=== PATIENT | male | born 1970 | race Caucasian/White ===

== ENCOUNTER 2021-01-29 06:28 | Outpatient (REF) | payer BC, SELFPAY ==
[2021-01-29 11:42] LABS: Alanine Aminotransferase 20 U/L (0-40); Albumin Level 4.5 g/dL (3.5-5.0); Alkaline Phosphatase 59 U/L (39-117); Anion Gap 15 (12-20); Aspartate Amino Transferase 18 U/L (5-37); Bilirubin Total 0.5 mg/dL (0.0-1.0); Blood Urea Nitrogen 18 mg/dL (9-16); Carbon Dioxide 25 mmol/L (22-29); Chloride 107 mmol/L (96-108); Cholesterol 176 mg/dL; Estimated Glomerular Filt Rate > 60; Glucose Fasting 92 mg/dL (60-99); HDL Cholesterol 44 mg/dL; LDL Cholesterol Calculated 107 mg/dl; Potassium 4.4 mmol/L (3.3-5.1); Sodium 143 mmol/L (135-145); Total Protein 7.1 g/dL (6.5-8.0); Triglycerides 127 mg/dL
[2021-01-29 11:50] LABS: Prostate Specific Antigen Scr 0.42 ng/mL (<0.05-4.0); TSH reflex Free T4 1.23 uIU/mL (0.32-4.0)
== END 2021-01-29 06:29 | disposition home or self-care (01) ==
LOC: HO.HMGCLDS 06:28
PROVIDERS: PCP Nurse Practitioner Family; Visit Provider Nurse Practitioner Family
DX: Z00.00 Encounter for general adult medical examination without abnormal findings (principal); Z12.5 Encounter for screening for malignant neoplasm of prostate
CPT/HCPCS: 36415; 80053; 80061; 84153; 84443

== ENCOUNTER → 2021-04-07 08:53 | Outpatient (BNVA) | payer BC, SELFPAY | PROVIDERS: Referring Provider Nurse Practitioner Family; Visit Provider Physician Assistant ==

== ENCOUNTER 2021-08-04 12:21 | Day surgery (SDC) | payer BC, SELFPAY ==
[2021-07-30 10:49] VITALS: BMI 26.4
--- NOTE | 2021-08-03 10:28 | P.CONAN_ITS ---
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 (Acute) Screening for colon cancer (Acute) Screening PSA (prostate specific antigen) (Acute) Physical exam (Acute) Past Medical History Medical History Dyslipidemia History of deep vein thrombosis HTN (hypertension) USP current use of anticoagulant therapy Family History Family History Mother Hypertension Breast cancer Father Hypertension Lung cancer Social History Social History Household Members: Significant Other Alcohol intake: current Alcohol intake frequency: 0-2 drinks per day Patient Tobacco Use Status: Tobacco use Unknown Advance Directives: No Advance Directives Information Provided: Yes Current occupational status: employed 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 Meds Allergies Allergy/AdvReac Type Severity Reaction Status Date / Time No Known Allergies Allergy Verified 08/04/21 13:25 Home Medications Medication Instructions Recorded Confirmed Last Taken Type rivaroxaban 20 mg tablet 20 mg PO DAILY 01/14/21 08/04/21 07/31/21 History Exam Exam Date and Time: August 03, 2021 1028 Height,Weight and Vital Signs: Height 5 ft 10 in Weight 83.461 kg Assessment and Plan Assessment Anesthesia Assessment: Chart Reviewed Documented by User: Maria G De La Garza MD 08/04/21 13:59 PMFSH Past Medical History Medical History Dyslipidemia History of deep vein thrombosis HTN (hypertension) 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 Family History Family History Mother Hypertension Breast cancer Father Hypertension Lung cancer Family history of problems with anesthesia: No Surgical History History of Problems with Anesthesia: No Social History Social History Household Members: Significant Other Alcohol intake: current Alcohol intake frequency: 0-2 drinks per day Patient Tobacco Use Status: Tobacco use Unknown Advance Directives: No Advance Directives Information Provided: Yes Current occupational status: employed 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 Meds Allergies Allergy/AdvReac Type Severity Reaction Status Date / Time No Known Allergies Allergy Verified 08/04/21 13:25 Home Medications Medication Instructions Recorded Confirmed Last Taken Type rivaroxaban 20 mg tablet 20 mg PO DAILY 01/14/21 08/04/21 07/31/21 History Exam Airway Mallampati Class: II TM Dist: >3cm Neck ROM: Full Assessment and Plan Assessment Anesthesia Assessment: Anesthesia Plan Discussed Final Anesthetic Review Family History of Problems with Anesthesia: No History of Problems with Anesthesia: No NPO: Yes ASA Class: II Final Preanesthetic Review: No Changes in Pt Med Stat, Meds/Allgs Chart Reviewed, Consent Obtained/Reviewed and Anes Risks/Benef Reviewed Patient Risk: Intermediate Procedure Risk: Low Assessment/Block/Sedation in SS: Assess/Block/Sedation-SS Anesthetic Plan Anesthetic Plan: MAC: Disposition: Standard PACU
--- NOTE | 2021-08-04 13:14 | MHC.SHP ---
Pre-Procedural Eval Section A Date of Service: 08/04/21 The patient is an INPATIENT: No The History & Physical has been completed within 30 days and I have reviewed it.: No Section B Chief Complaint: Screening Details of Present Illness: Colon cancer screening Relevant Family History (Specify if Yes): No Relevant Social History: None Present Medications: see Short Stay Collaborative assessment Medical History: Significant History (Dyslipidemia History of deep vein thrombosis HTN (hypertension) correction current use of anticoagulant therapy) History of Previous Operations: No relevant previous surgery Allergies: Allergies Allergy/AdvReac Type Severity Reaction Status Date / Time No Known Allergies Allergy Unverified 04/07/21 09:01 Review of Systems Sugical H&P ROS: Negative: Constitution, Cardiovascular, Respiratory and Gastrointestinal Exam Surgical H&P Exam: Normal: Heart, Normal: Lungs, Normal: Extremities and Normal: Abdomen Plan Diagnosis/Plan: Unchanged I have reviewed the history and physical and performed a pertinent physical examination on my patient. No changes have occurred unless specified.
--- NOTE | 2021-08-04 13:16 | P.OP_ITS ---
Operative Note Operative Note Date of Service: 08/04/21 Narrative: Pre-op diagnosis:?Colon cancer screening Post-op diagnosis:?other (Colon polyps, diverticulosis) Procedure:? COLONOSCOPY TILL CECUM WITH BIOPSY, SNARE POLYPECTOMY, SUBMUCOSAL INJECTION AND CONTROL OF BLEEDING WITH HEMOCLIP PLACEMENT Consent: Indications for the procedure and potential complications of bleeding, perforation, reaction to medications and missed diagnosis were discussed with the patient and informed consent was obtained. Instrument: Olympus PCF H 190 L variable stiffness pediatric colonoscope Monitoring: Vital signs and clinical assessment, intermittent blood pressure monitoring, continuous EKG monitoring, Pulse oximetry and Carbon Dioxide monitoring were done throughout the procedure. Colon withdrawl time was 40 minutes. Procedure: The patient was placed in the left lateral decubitis position and pre-procedure medications were administered. After a digital rectal examination of the ano-rectum, the video colonoscope was inserted into the rectum and advanced through the colon to the cecum. The colonoscope was slowly withdrawn in a retrograde panoramic fashion and the colon mucosa was carefully examined including a retroflexed view of the rectum. Findings and interventions are described below. Procedure Difficulty: Without difficulty Findings: Terminal Ileum: Not evaluated Cecum:? Normal Ascending Colon:? A 7-8 mm sessile polyp in distal AC removed with a cold snare and polyp was not retrieved.? A 4 cms x 2 cms flat polyp along a fold at 75 cms (20% of the colon circumference).? Polyp was raised with 6 cc of Orise solution and removed piece meal with a hot snare. ? Remaining polyp? was ablated with APC.? Polypectomy site was marked by brigette ink. Transverse Colon:? Normal Descending Colon:? Normal Sigmoid Colon:? Moderate diverticulosis Rectum:? A 12-15 mm sessile polyp inadvertently? removed with a cold with some bleeding at polypectomy site controlled with one resolution clip placement and cautery using the snare tip. Ano-rectum:? Normal Colon preparation:? Good? Impression and Post Procedure Diagnosis: Colonoscopy Findings: Three polyps removed Moderate diverticulosis seen in the sigmoid colon Plan: Await pathology results Patient has an appointment on 08/12/21 in the [facility] with BRADLY De La Cruz? . Repeat Colonoscopy interval based on path results - in 3-6 months if AC polyp at 75 cms is adenomatous to check polypectomy site and 10 years if polyps are hyperplastic. Above findings were reviewed with the patient and colon polyps and diverticulosis handouts were given in the discharge area. Pt was advised to resume Xarelto on 08/11/2021. Surgeon:?Heydi Silver MD Anesthesia:?MAC (Dr De La Garza) Was an Family Engagement Specialist used for this Procedure?:?Yes Family Engagement Specialist:?Ana Vargas Estimated blood loss (mL):?0 Pathology:?other (A. ascending colon polyp at 75 cm with Orise? B. rectal polyp) Condition:?stable Disposition:?PACU
[2021-08-04 13:28] VITALS: BP 160/88; PULSE 66; RESP 16; TEMP 36.6; O2SAT 100
[2021-08-04] MEDS: Lactated Ringers 1,000 ML 100 ML IVCONT (13:33)
[2021-08-04 15:25] VITALS: BP 106/64; PULSE 52; RESP 16; TEMP 36.5; O2SAT 99
[2021-08-04 15:41] VITALS: BP 126/83; PULSE 48; RESP 17; O2SAT 100
[2021-08-04 15:46] VITALS: BP 134/79; PULSE 50; RESP 17; O2SAT 100
== END 2021-08-04 16:10 | disposition home or self-care (01) ==
PROVIDERS: PCP Nurse Practitioner Family; Visit Provider Internal Medicine Gastroenterology
PROC: 0DJD8ZZ Inspection of Lower Intestinal Tract, Via Natural or Artificial Opening Endoscopic (ICD-10-PCS; CPT 45378; principal; 2021-08-04 13:30)
DX: Z12.11 Encounter for screening for malignant neoplasm of colon (principal); D12.2 Benign neoplasm of ascending colon; D12.8 Benign neoplasm of rectum; K57.30 Diverticulosis of large intestine without perforation or abscess without bleeding; I10 Essential (primary) hypertension; Z86.718 Personal history of other venous thrombosis and embolism; Z79.01 Long term (current) use of anticoagulants; Z79.899 Other long term (current) drug therapy
CPT/HCPCS: 45388; 45385; 45381; 88305; J3010

== ENCOUNTER 2021-08-05 15:26 | Emergency (ER) | payer BC, SELFPAY ==
--- NOTE | ~2021-08-05 | US_ITS ---
EXAMINATION: US VENOUS ULTRASOUND WITH DOPPLER LOWER EXTREMITY, LEFT CLINICAL INFORMATION: Pain COMPARISON: None TECHNIQUE: Ultrasound of the deep veins is performed from the hip to the calf with compression sonography and color and pulse Doppler assessment. Spectral analysis with color-flow imaging is performed. FINDINGS: There is normal venous compression and respiratory variation and augmented flow. The visualized common femoral vein, superficial femoral vein, profunda femoral vein, popliteal vein, and the trifurcation region shows no evidence of deep venous thrombosis. There is no significant popliteal fossa cyst. If the patient's symptoms persist, followup ultrasound in 5 days 7 days might be of value to exclude proximal propagation from a non-visualized calf vein. US/US venous duplex LE LT IMPRESSION: No DVT demonstrated in the left lower extremity.
[2021-08-05 15:42] VITALS: BP 158/85; PULSE 78; RESP 16; TEMP 36.9; O2SAT 100; BMI 25.8
--- NOTE | 2021-08-05 17:10 | ED_ITS ---
HPI - General Adult General Chief complaint: General Medical Stated complaint: dvt? Time Seen by Provider: 08/05/21 16:59 Source: patient Mode of arrival: ambulatory Limitations: no limitations History of Present Illness HPI narrative: Patient comes to the emergency room complaining of left lower extremity pain behind the knee and left thigh. Patient states that he has been off blood thinners for 6 days due to a colonoscopy that he needed. Patient usually takes Xarelto which she takes for previous DVTs. Patient states he has had multiple DVTs in the past, 1st 1 in 2010, and he was taken off blood thinners then he developed a DVT 3 weeks later. Taking of warfarin and developed more DVTs, since then he has been constantly on Xarelto. Patient denies chest pain, no shortness of breath, no calf pain Related Data Home Medications Medication Instructions Recorded Confirmed rivaroxaban 20 mg tablet 20 mg PO DAILY 01/14/21 08/04/21 Previous Rx's Medication Instructions Recorded atorvastatin 10 mg tablet 10 mg PO DAILY #90 tab 05/31/21 doxycycline hyclate 100 mg tablet 100 mg PO BID #20 tab 06/08/21 lisinopril 10 mg tablet 10 mg PO DAILY #30 tab 06/13/21 gemfibrozil 600 mg tablet 600 mg PO BID 30 Days #60 tab 07/06/21 Allergies Allergy/AdvReac Type Severity Reaction Status Date / Time No Known Allergies Allergy Verified 08/04/21 13:25 Review of Systems Review of Systems: Constitutional : No Weight loss, No Fever, No Chills, No Night Sweats, No Fatigue, No Malaise ENT/Mouth : No Hearing loss, No Ear Pain, No Nasal Congestion, No Sinus Pain, No Hoarseness, No sore throat, No Rhinorrhea, No Swallowing Difficulty Eyes: No Eye Pain, No Swelling, No Redness, No Foreign Body, No Discharge, No Vision Changes Cardiovascular : No Chest Pain, No SOB, No Dyspnea on Exertion, No Orthopnea, No Edema, No Palpitations Respiratory : No Cough, No Sputum, No Wheezing, No Smoke Exposure, No Dyspnea Gastrointestinal : No Nausea, No Vomiting, No Diarrhea, No Constipation, No a bdominal Pain, No Hematochezia, No Melena Genitourinary : no irregular bleeding, No Dysuria, No Urinary Frequency, No Hematuria, No Urinary Incontinence, No Urgency, No Flank Pain, No Urinary Flow Changes, No Hesitancy Musculoskeletal complaining of left lower extremity pain behind the knee and distal left thigh, denies calf pain, No Myalgias, No Joint Swelling Skin : No Skin Lesions, No rash Neuro : No Weakness, No Numbness, No Paresthesias, No Loss of Consciousness, No Dizziness, No Headache Psych : No Anxiety/Panic, No Depression, No SI/HI/AH/VH, No Social Issues, Heme/Lymph: No Bruising, No Bleeding,No Lymphadenopathy Endocrine : No Polyuria, No Polydipsia, No Temperature Intolerance [facility] Past Medical History Medical History Dyslipidemia History of deep vein thrombosis HTN (hypertension) [facility] current use of anticoagulant therapy Family History Family History Mother Hypertension Breast cancer Father Hypertension Lung cancer Social History Social History Household Members: Significant Other Alcohol intake: never Patient Tobacco Use Status: Tobacco use Unknown Use of substances other than those prescribed or required for medical reasons: No Advance Directives: No Advance Directives Information Provided: No Current occupational status: employed 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 Oriented X3. No acute distress. Eyes: Pupils equal, round and reactive to light. ENT: Pharynx normal. Neck: Normal inspection. Neck supple. No lymph nodes noted. No crepitus CVS: Normal heart rate and rhythm. Pulses normal. Normal S1 and S2 Respiratory: No respiratory distress. Breath sounds normal. No Wheezing. No rales Abdomen: Soft and nontender. No rigidity. No distention. good BS x4 Skin: Skin warm and dry. Normal skin color. Normal skin turgor. Extremities: No lower extremity edema. Mild discomfort to palpation behind the left knee and posterior/distal aspect of left thigh, no calf tenderness, No Lacerations. No Rash Neuro: Oriented X 3. No motor deficit. No sensory deficit. Moving all extermities. No slurred speech. Course Course Course Narrative: Patient's ultrasound is negative. Symptoms reviewed before discharge, pain is localized behind the left knee, no calf pain, no groin pain, no chest pain or shortness of breath, vital stable, blood pressure 128/74, heart rate 61, oxygen saturation 99% on room air. Patient states that he called his third rigger today and his building insulation supervisor, they both agreed that patient can restart his Xarelto on August 11. I instructed the patient to return to the emergency room if he has any ongoing/worsening symptoms, chest pain or shortness of breath, or any new symptoms. I also discussed with the patient that if his symptoms persist, he may need an ultrasound again in a week Medical Decision Making Lab Data Result diagrams: 08/05/21 17:39 08/05/21 17:39 Labs: Lab Results 08/05/21 08/05/21 08/05/21 Range/Units 17:39 17:39 17:39 WBC 11.2 H (4.8-10.8) X10*3/uL RBC 4.48 L (4.60-5.80) X10*6/uL Hgb 14.0 (14.0-18.0) g/dl Hct 39.9 L (42-52) % MCV 89.1 (80-98) fL MCH 31.3 (27.0-33.0) pg MCHC 35.1 (31.0-36.0) g/dl RDW 11.8 (11.0-16.0) % Plt Count 330 (160-400) X10*3/uL MPV 8.4 L (9.4-12.4) fL Immature Gran % (Auto) 0.2 (0.0-0.4) % Neut % (Auto) 74.1 H (45-73) % Lymph % (Auto) 15.7 L (20-40) % Mingo % (Auto) 8.6 (2-11) % Eos % (Auto) 1.2 (0-4) % Baso % (Auto) 0.2 (0-2) % Lymph # (Auto) 1.8 (1.2-4.9) X10*3/uL Mingo # (Auto) 1.0 (0.1-1.2) X10*3/uL Eos # (Auto) 0.1 (0.0-0.4) X10*3/uL Baso # (Auto) 0.0 (0.0-0.2) X10*3/uL Abs Immat Gran (auto) 0.02 (0.00-0.03) X10*3/uL Absolute Neuts (auto) 8.3 (2.0-8.3) X10*3/uL Absolute Nucleated RBC 0.000 (0.0-0.012) X10*3/uL Nucleated RBC % (auto) 0.0 (0.0-0.2) /100WBC D-Dimer 345 NG/ML Sodium 140 (135-145) mmol/L Potassium 4.4 (3.3-5.1) mmol/L Chloride 107 (96-108) mmol/L Carbon Dioxide 24 (22-29) mmol/L Anion Gap 13 (12-20) BUN 8 L D (9-16) mg/dL Creatinine 0.94 (0.5-1.4) mg/dL Estim Creat Clear Calc 95.9 Estimated GFR > 60 Random Glucose 92 (60-115) mg/dL Calcium 9.0 (8.4-10.2) mg/dL Imaging Data Venous US: Radiologist's impression: Ultrasound of the deep veins is performed from the hip to the calf with compression sonography and color and pulse Doppler assessment. Spectral analysis with color-flow imaging is performed. FINDINGS: There is normal venous compression and respiratory variation and augmented flow. The visualized common femoral vein, superficial femoral vein, profunda femoral vein, popliteal vein, and the trifurcation region shows no evidence of deep venous thrombosis. ? There is no significant popliteal fossa cyst. If the patient's symptoms persist, followup ultrasound in 5 days 7 days might be of value to exclude proximal propagation from a non-visualized calf vein. US/US venous duplex LE IMPRESSION: No DVT demonstrated in the left lower extremity. Discharge Plan Discharge Clinical Impression: Left leg pain Patient Disposition: Home, Self-Care Instructions: Leg Pain (ED) Additional Instructions: If you have any persistent symptoms, you may need a repeat ultrasound in a week. If you have any new symptoms such as chest pain, shortness of breath, worsening leg pain or calf pain, please return to emergency room. Please follow your building insulation supervisor and third rigger advise to restart Xarelto as indicated. Prescriptions: No Action atorvastatin 10 mg tablet 10 mg PO DAILY Qty: 90 RF: 0 lisinopril 10 mg tablet 10 mg PO DAILY Qty: 30 RF: 4 gemfibrozil 600 mg tablet 600 mg PO BID 30 Days Qty: 60 RF: 3 rivaroxaban 20 mg tablet 20 mg PO DAILY RF: 0 doxycycline hyclate 100 mg tablet 100 mg PO BID Qty: 20 RF: 0
[2021-08-05 17:45] LABS: MANUAL DIFF FLAG NO
[2021-08-05 17:51] LABS: Basophils Percent Auto 0.2 % (0-2); Eosinophils Absolute Auto 0.1 X10*3/uL (0.0-0.4); Eosinophils Percent Auto 1.2 % (0-4); Hematocrit 39.9 % (42-52); Imm Gran Abs Auto 0.02 X10*3/uL (0.00-0.03); Imm Gran Pct Auto 0.2 % (0.0-0.4); Lymphocytes Absolute Auto 1.8 X10*3/uL (1.2-4.9); Lymphocytes Percent Auto 15.7 % (20-40); Mean Corpuscular HGB Conc 35.1 g/dl (31.0-36.0); Mean Corpuscular Hemoglobin 31.3 pg (27.0-33.0); Mean Corpuscular Volume 89.1 fL (80-98); Mean Platelet Volume 8.4 fL (9.4-12.4); Monocytes Percent Auto 8.6 % (2-11); Neutrophils Absolute Auto 8.3 X10*3/uL (2.0-8.3); Neutrophils Percent Auto 74.1 % (45-73); Platelet Count 330 X10*3/uL (160-400); Red Blood Count 4.48 X10*6/uL (4.60-5.80); Red Cell Distribution Width 11.8 % (11.0-16.0); White Blood Count 11.2 X10*3/uL (4.8-10.8)
[2021-08-05 17:54] LABS: D Dimer 345 NG/ML
[2021-08-05 18:00] VITALS: BP 128/74; PULSE 61; RESP 18; TEMP 37.1; O2SAT 99
[2021-08-05 18:01] LABS: Anion Gap 13 (12-20); Blood Urea Nitrogen 8 mg/dL (9-16); Carbon Dioxide 24 mmol/L (22-29); Chloride 107 mmol/L (96-108); Creatinine Clr Calc Pharmacy 95.9; Estimated Glomerular Filt Rate > 60; Glucose Random 92 mg/dL (60-115); Potassium 4.4 mmol/L (3.3-5.1); Sodium 140 mmol/L (135-145)
== END 2021-08-05 18:39 | disposition home or self-care (01) ==
PROVIDERS: Emergency Provider Emergency Medicine; PCP Nurse Practitioner Family
DX: R60.0 Localized edema (principal); M79.605 Pain in left leg; Z79.4 Long term (current) use of insulin; Z79.899 Other long term (current) drug therapy
CPT/HCPCS: 36415; 80048; 85025; 85379; 93971; 99284

== ENCOUNTER 2021-08-08 13:41 | Emergency (ER) | payer BC, SELFPAY ==
--- NOTE | ~2021-08-08 | US_ITS ---
EXAMINATION: US VENOUS WITH DOPPLER LOWER EXTREMITY, RIGHT CLINICAL INFORMATION: Pain. Evaluate for a deep vein thrombosis. COMPARISON: Right lower extremity venous ultrasound dated 01/14/2016. TECHNIQUE: Ultrasound of the deep veins is performed from the hip to the calf with compression sonography and color and pulse Doppler assessment. Spectral analysis with color-flow imaging is performed. FINDINGS: Heterogeneous echogenicity with non-compressibility of the mid and distal posterior tibial vein, consistent with deep vein thrombosis. Partially occlusive clot seen within the proximal aspect of the peroneal vein. The common femoral vein, greater saphenous vein, deep femoral vein, superficial femoral vein, and popliteal vein are patent. No Ledbetter's cyst. In the region of the patient's pain at the anterior thigh there is heterogeneous echogenicity with thickening and slightly lobular contour within the quadriceps muscle. This area measures approximately 6.3 x 3.3 cm. Findings could represent a partial muscle tear and associated hematoma. If there is clinical concern, non-emergent MRI could help further evaluate. US/US venous duplex LE RT IMPRESSION: 1. Deep vein thrombosis within the distal posterior tibial vein. Non-occlusive thrombus within the proximal peroneal vein. 2. Area of lobulated heterogeneity within the right quadriceps muscle measuring 6.3 x 3.3 cm. Findings could represent partial muscle tearing and associated hematoma. If there is clinical concern, non-emergent MRI could help further evaluate. This critical result was discussed with Dr. Cotter at 7:51 PM on 08/08/2021 and it was ascertained that the content and urgency of the report was understood at the time of direct communication.
[2021-08-08 13:45] VITALS: BP 162/84; PULSE 84; RESP 16; TEMP 36.8; O2SAT 99; BMI 25.8
[2021-08-08 16:26] LABS: Hemoglobin 14.2 g/dl (14.0-18.0); Mean Corpuscular HGB Conc 34.6 g/dl (31.0-36.0); Mean Corpuscular Hemoglobin 31.1 pg (27.0-33.0); Mean Corpuscular Volume 89.7 fL (80-98); Mean Platelet Volume 8.5 fL (9.4-12.4); Platelet Count 362 X10*3/uL (160-400); Red Blood Count 4.57 X10*6/uL (4.60-5.80); Red Cell Distribution Width 11.9 % (11.0-16.0); White Blood Count 12.4 X10*3/uL (4.8-10.8)
[2021-08-08 16:43] LABS: Anion Gap 14 (12-20); Blood Urea Nitrogen 9 mg/dL (9-16); Calcium 9.3 mg/dL (8.4-10.2); Carbon Dioxide 24 mmol/L (22-29); Chloride 107 mmol/L (96-108); Creatinine Clr Calc Pharmacy 111.4; Estimated Glomerular Filt Rate > 60; Glucose Random 82 mg/dL (60-115); Potassium 4.6 mmol/L (3.3-5.1); Sodium 140 mmol/L (135-145)
--- NOTE | 2021-08-08 17:22 | ED_ITS ---
HPI - Extremity Problem General Chief complaint: Extremity Problem Stated complaint: leg pain post op Time Seen by Provider: 08/08/21 17:10 History of Present Illness HPI Narrative: Patient 50 years old with a history of DVT. Patient stopped his Xarelto approximately 1 week ago. Had his colonoscopy on Tuesday. Subsequently presented to the emergency department on with having increasing leg pain on the right side. At that time he had an ultrasound which was negative. Patient complained that the pain has worsened and there is increased swelling to the leg. Patient denies any chest pain shortness of breath any nausea vomiting. No focal weakness. No cough no congestion or upper respiratory symptoms. No diaphoresis. Patient is from home. Related Data Home Medications Medication Instructions Recorded Confirmed rivaroxaban 20 mg tablet 20 mg PO DAILY 01/14/21 08/04/21 Previous Rx's Medication Instructions Recorded atorvastatin 10 mg tablet 10 mg PO DAILY #90 tab 05/31/21 doxycycline hyclate 100 mg tablet 100 mg PO BID #20 tab 06/08/21 lisinopril 10 mg tablet 10 mg PO DAILY #30 tab 06/13/21 gemfibrozil 600 mg tablet 600 mg PO BID 30 Days #60 tab 07/06/21 Allergies Allergy/AdvReac Type Severity Reaction Status Date / Time No Known Allergies Allergy Verified 08/04/21 13:25 Review of Systems Review of Systems: No fever no chills no chest pain Positive leg swelling No shortness of breath No cough no congestion or upper respiratory symptoms. All systems reviewed otherwise negative Yes all other systems are reviewed and are negative PMFSH Past Medical History Attestation statement: The following information was validated with the patient. 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 Oriented X3. No acute distress. Eyes: Pupils equal, round and reactive to light. ENT: Pharynx normal. Neck: Normal inspection. Neck supple. No lymph nodes noted. No crepitus CVS: Normal heart rate and rhythm. Pulses normal. Normal S1 and S2 Respiratory: No respiratory distress. Breath sounds normal. No Wheezing. No rales Abdomen: Soft and nontender. No rigidity. No distention. good BS x4 Skin: Skin warm and dry. Normal skin color. Normal skin turgor. Extremities: Calves are about equal in size about 10 cm below the tibial tuberosity. Sensation in the lower extremity intact. Pulse 2 + at dorsalis pedis. This skin appeared same color. Range of motion at the knee ankle hip all intact bilaterally Neuro: Oriented X 3. No motor deficit. No sensory deficit. Moving all extermities. No slurred speech MDM - Extremity (Nontraumatic) MDM Narrative Medical decision making narrative: Patient has a history of DVT in the past. Baseline is on Xarelto. He was stopped for a colonoscopy. During the colonoscopy on Tuesday. Patient was found to have a polyp. It was excised. Subsequent to the colonoscopy patient was told to stop taking the Xarelto for 1 week. Noticing increasing swelling to the leg. Had an ultrasound and a done a few days ago. At the time no blood clot was noted. This time around patient received a 2nd ultrasound. The 2nd ultrasound was positive for having a peroneal and posterior tibial vein clot. Consistent with below the knee DVT. In addition patient has complicated by a likely partial muscle tear in his thigh. Possible hematoma noted there. Patient have not noticed any blood. Hemoglobin has been stable. No shortness of breath to suggest pulmonary emboli. Considered the pros and cons. Case discussed with GI. Dr. White is okay with restarting Xarelto. Patient started on the back on Xarelto due to the risk of DVT causing PE. Revelo the risk of bleeding from the colonoscopy to be less severe since patient is 5 days away from his colonoscopy. Revelo a patient had a hematoma and it got worse that could be managed. If patient has a DVT and subsequently developed a PE it could be more complicating. Will have patient get repeat ultrasound next Tuesday. Patient states understanding. Will not be doing any strenuous exercises. Currently in stable condition. Will discharge home. Patient aware of the pros and cons of Xarelto. Agreed to give this regiment a try. Lab Data Result diagrams: 08/08/21 16:07 08/08/21 16:07 Labs: Lab Results 08/08/21 08/08/21 Range/Units 16:07 16:07 WBC 12.4 H (4.8-10.8) X10*3/uL RBC 4.57 L (4.60-5.80) X10*6/uL Hgb 14.2 (14.0-18.0) g/dl Hct 41.0 L (42-52) % MCV 89.7 (80-98) fL MCH 31.1 (27.0-33.0) pg MCHC 34.6 (31.0-36.0) g/dl RDW 11.9 (11.0-16.0) % Plt Count 362 (160-400) X10*3/uL MPV 8.5 L (9.4-12.4) fL Absolute Nucleated RBC 0.000 (0.0-0.012) X10*3/uL Nucleated RBC % (auto) 0.0 (0.0-0.2) /100WBC Sodium 140 (135-145) mmol/L Potassium 4.6 (3.3-5.1) mmol/L Chloride 107 (96-108) mmol/L Carbon Dioxide 24 (22-29) mmol/L Anion Gap 14 (12-20) BUN 9 (9-16) mg/dL Creatinine 0.81 (0.5-1.4) mg/dL Estim Creat Clear Calc 111.4 Estimated GFR > 60 Random Glucose 82 (60-115) mg/dL Calcium 9.3 (8.4-10.2) mg/dL Discharge Plan Discharge Clinical Impression: Deep vein thrombosis of lower extremity, Hematoma Patient Disposition: Home, Self-Care Instructions: Deep Vein Thrombosis (ED) Additional Instructions: Please restart the Xarelto tonight. Please take it once a day. Repeat ultrasound next Tuesday. Prescriptions: No Action atorvastatin 10 mg tablet 10 mg PO DAILY Qty: 90 RF: 0 lisinopril 10 mg tablet 10 mg PO DAILY Qty: 30 RF: 4 gemfibrozil 600 mg tablet 600 mg PO BID 30 Days Qty: 60 RF: 3 rivaroxaban 20 mg tablet 20 mg PO DAILY RF: 0 doxycycline hyclate 100 mg tablet 100 mg PO BID Qty: 20 RF: 0 Referrals: Jaskaran Orellana, SENIOR BUSINESS OBJECTS DEVELOPER[employer] [Primary Care Provider] - 2 days (Risk of hematoma getting worse exists. Please place ice on it. Please do not perform any strenuous exercises.) Stand Alone Forms: Work/School Release
== END 2021-08-08 20:36 | disposition home or self-care (01) ==
PROVIDERS: Emergency Provider Emergency Medicine Emergency Medical Services; PCP Nurse Practitioner Family
DX: I82.4Z1 Acute embolism and thrombosis of unspecified deep veins of right distal lower extremity (principal); R60.0 Localized edema; M79.604 Pain in right leg; Z79.899 Other long term (current) drug therapy; Z79.01 Long term (current) use of anticoagulants
CPT/HCPCS: 36415; 80048; 85027; 93971; 99284

== ENCOUNTER 2021-08-14 11:18 | Outpatient (REF) | payer BC, SELFPAY ==
--- NOTE | ~2021-08-14 | US_ITS ---
EXAMINATION: US VENOUS ULTRASOUND WITH DOPPLER LOWER EXTREMITY, BILATERAL CLINICAL INFORMATION: History of positive right leg DVT 08/08/2021 COMPARISON: Ultrasound right lower extremity venous study 08/08/2021 and 08/05/2021 TECHNIQUE: Ultrasound of the deep veins is performed from the hip to the calf with compression sonography and color and pulse Doppler assessment. Spectral analysis with color-flow imaging is performed. FINDINGS: RIGHT: There is normal venous compression and respiratory variation and augmented flow. The visualized common femoral vein, superficial femoral vein, profunda femoral vein are widely patent. There is a chronic partially canalized clot in the right popliteal vein and mid to distal posterior tibial veins. There is no significant popliteal fossa cyst. LEFT: There is a new echogenic clot visualized in the left mid superficial femoral vein in mid thigh to lower thigh. Also visualized is an echogenic clot in the posterior tibial vein. The left common femoral, the popliteal, and the tibioperoneal veins are patent. US/US venous duplex LE BI IMPRESSION: New clot visualized in the left mid superficial femoral vein and posterior tibial vein mid to distal calf, new since the last left ultrasound venous study 08/05/2021. There are chronic changes of clot in the mid to distal posterior tibial vein and distal popliteal vein.
== END 2021-08-14 11:19 | disposition home or self-care (01) ==
LOC: HO.HMGCX 11:18
PROVIDERS: PCP Nurse Practitioner Family; Visit Provider Nurse Practitioner Family
DX: Z86.718 Personal history of other venous thrombosis and embolism (principal)
CPT/HCPCS: 93970

== ENCOUNTER → 2021-09-02 15:02 | Outpatient (BNV) | payer BC, SELFPAY | PROVIDERS: Visit Provider Internal Medicine | DX: I82.401 Acute embolism and thrombosis of unspecified deep veins of right lower extremity (principal) | CPT/HCPCS: 99203; 99213; 99214 ==

== ENCOUNTER → 2021-12-16 14:14 | Outpatient (BNVA) | payer BC, SELFPAY | PROVIDERS: PCP Nurse Practitioner Family; Referring Provider Nurse Practitioner Family; Visit Provider Physician Assistant ==

== ENCOUNTER 2022-03-17 06:01 | Outpatient (REF) | payer BC, SELFPAY ==
[2022-03-17 11:52] LABS: Appearance Urine CLOUDY; Color Urine YELLOW; Glucose Urine UA NEG (NEG); Leukocyte Esterase Urine NEG (NEG); Nitrite Urine NEG (NEG); PH 5.5 (5.0-8.0); Specific Gravity - Urine >= 1.030 (1.005-1.025); UACC Culture Trigger NO; Urine Blood TRACE (NEG); Urine Ketones NEG (NEG); Urine Protein NEG (NEG-TRACE)
[2022-03-17 12:06] LABS: Amorphous Sediment Urine 3+ /LPF; Bacteria Urine TRACE /LPF; Calcium Oxalate Crystals Urine TRACE /LPF; RBC Urine 0-2 /HPF (0); WBC Urine 0 /HPF (0-4)
[2022-03-17 12:19] LABS: Prostate Specific Antigen Scr 0.36 ng/mL (<0.05-4.0); TSH reflex Free T4 1.86 uIU/mL (0.32-4.0)
[2022-03-17 12:24] LABS: Alanine Aminotransferase 20 U/L (0-40); Albumin Level 4.4 g/dL (3.5-5.0); Alkaline Phosphatase 63 U/L (39-117); Anion Gap 10 (12-20); Aspartate Amino Transferase 16 U/L (5-37); Bilirubin Total 0.6 mg/dL (0.0-1.0); Blood Urea Nitrogen 16 mg/dL (9-16); Calcium 9.3 mg/dL (8.4-10.2); Carbon Dioxide 27 mmol/L (22-29); Chloride 109 mmol/L (96-108); Cholesterol 190 mg/dL; Estimated Glomerular Filt Rate > 60; Glucose Fasting 109 mg/dL (60-99); HDL Cholesterol 45 mg/dL; LDL Cholesterol Calculated 113 mg/dl; Potassium 4.1 mmol/L (3.3-5.1); Sodium 142 mmol/L (135-145); Triglycerides 161 mg/dL
== END 2022-03-17 06:02 | disposition home or self-care (01) ==
LOC: HO.HMGCLDS 06:01
PROVIDERS: PCP Nurse Practitioner Family; Visit Provider Nurse Practitioner Family
DX: Z00.00 Encounter for general adult medical examination without abnormal findings (principal); Z12.5 Encounter for screening for malignant neoplasm of prostate
CPT/HCPCS: 36415; 80053; 80061; 81001; 81003; 84153; 84443

== ENCOUNTER 2022-04-12 06:09 | Outpatient (REF) | payer BC, SELFPAY ==
[2022-04-12 11:07] LABS: Urine Cytology See Pathology rpt
[2022-04-12 11:21] LABS: Appearance Urine CLEAR; Color Urine YELLOW; Glucose Urine UA NEG (NEG); Leukocyte Esterase Urine NEG (NEG); Nitrite Urine NEG (NEG); PH 5.5 (5.0-8.0); Specific Gravity - Urine 1.025 (1.005-1.025); Urine Blood NEG (NEG); Urine Ketones NEG (NEG); Urine Protein NEG (NEG-TRACE)
== END 2022-04-12 06:10 | disposition home or self-care (01) ==
LOC: HO.HMGCLDS 06:09
PROVIDERS: PCP Nurse Practitioner Family; Visit Provider Nurse Practitioner Family
DX: R31.29 Other microscopic hematuria (principal)
CPT/HCPCS: 81003; 87086; 88112

== ENCOUNTER 2022-04-16 10:25 | Day surgery (SDC) | payer BC, SELFPAY ==
[2022-04-12 14:23] VITALS: BMI 26.5
--- NOTE | 2022-04-15 13:09 | P.CONAN_ITS ---
Documented by User: Lizzy Chaudhari NP 04/15/22 13:18 HPI - Anesthesia Eval Consult details Narrative: 51yo M for Colonoscopy Xarelto for DVT, lovenox bridge per heme s/p colo 07/2021 with MAC (repeat bc adenomatous polyp) PMFSH Active Problems Active Problems: All Active Problems (Updated 04/12/22 @ 14:22 by Michelle Hendrickson RN) Physical exam (Acute) Screening PSA (prostate specific antigen) (Acute) Screening for colon cancer (Acute) Insect bite (Acute) Tubular adenoma (Acute) Diverticulosis large intestine w/o perforation or abscess w/o bleeding (Acute) Physical exam (Acute) Microscopic hematuria (Acute) Dyslipidemia (Acute) HTN (hypertension) (Acute) History of deep vein thrombosis (Chronic) assisted current use of anticoagulant therapy (Acute) Past Medical History Medical History (Updated 04/12/22 @ 14:22 by Michelle Hendrickson RN) COVID-19 vaccine series completed Dyslipidemia History of deep vein thrombosis HTN (hypertension) assisted current use of anticoagulant therapy Family History Family History (Updated 04/07/22 @ 14:41 by Marlene Alcaraz CMA) Mother Breast cancer Hypertension Father Lung cancer Hypertension Maternal Grandfather Skin cancer Paternal Grandfather Colon cancer Sister Skin cancer Family history of problems with anesthesia: No Surgical History Surgical History (Updated 04/12/22 @ 14:17 by Michelle Hendrickson RN) History of surgery Hx of colonoscopy History of Problems with Anesthesia: No Social History Social History (Updated 04/07/22 @ 14:41 by Marlene Alcaraz CMA) Household Members: Spouse Housing: House Are you a primary urgent care physician assistant to a significant other at home: No Do you presently have visiting nurse or other home services: No Alcohol intake: current Alcohol intake frequency: 3 or more drinks per day Alcohol type: beer Patient Tobacco Use Status: Former Tobacco user Quit Date: 1997 Tobacco use type: Cigarette Cigarette Packs Per Day: 1.5 Years Smoked: over 20 years ago e-Cigarette/Vaping Use: Never Used Second Hand Smoke Exposure: No Are you DNR?: No Advance Directives: No Advance Directives Information Provided: Yes service: Yes Current occupational status: employed 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 Current occupational exposures/hazards: No Meds Allergies Allergy/AdvReac Type Severity Reaction Status Date / Time No Known Allergies Allergy Verified 04/07/22 14:42 Home Medications Medication Instructions Recorded Confirmed Last Taken Type rivaroxaban 20 mg tablet (Xarelto) 20 mg PO DAILY 01/14/21 04/12/22 07/31/21 History Exam Exam Date and Time: April 15, 2022 1309 Height,Weight and Vital Signs: Height 5 ft 10 in Weight 83.915 kg Pertinent Lab Results Pertinent Lab Results: Laboratory Tests 04/07/22 04/07/22 14:44 14:44 WBC 8.8 Hgb 14.2 Hct 41.0 L Plt Count 365 Sodium 137 Potassium 5.1 D Chloride 105 Carbon Dioxide 24 BUN 18 H Creatinine 0.96 Assessment and Plan Assessment Anesthesia Assessment: Chart Reviewed Final Anesthetic Review Family History of Problems with Anesthesia: No History of Problems with Anesthesia: No Documented by User: Deb Paez MD 04/16/22 10:51 FORMERLY [facility], [facility] Past Medical History Medical History (Updated 04/12/22 @ 14:22 by Michelle Hendrickson RN) COVID-19 vaccine series completed Dyslipidemia History of deep vein thrombosis HTN (hypertension) assisted current use of anticoagulant therapy Family History Family History (Updated 04/07/22 @ 14:41 by Marlene Alcaraz CMA) Mother Breast cancer Hypertension Father Lung cancer Hypertension Maternal Grandfather Skin cancer Paternal Grandfather Colon cancer Sister Skin cancer Surgical History Surgical History (Updated 04/12/22 @ 14:17 by Michelle Hendrickson RN) History of surgery Hx of colonoscopy Social History Social History (Updated 04/07/22 @ 14:41 by Marlene Alcaraz CMA) Household Members: Spouse Housing: House Are you a primary urgent care physician assistant to a significant other at home: No Do you presently have visiting nurse or other home services: No Alcohol intake: current Alcohol intake frequency: 3 or more drinks per day Alcohol type: beer Patient Tobacco Use Status: Former Tobacco user Quit Date: 1997 Tobacco use type: Cigarette Cigarette Packs Per Day: 1.5 Years Smoked: over 20 years ago e-Cigarette/Vaping Use: Never Used Second Hand Smoke Exposure: No Are you DNR?: No Advance Directives: No Advance Directives Information Provided: Yes service: Yes Current occupational status: employed 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 Current occupational exposures/hazards: No Meds Allergies Allergy/AdvReac Type Severity Reaction Status Date / Time No Known Allergies Allergy Verified 04/07/22 14:42 Home Medications Medication Instructions Recorded Confirmed Last Taken Type rivaroxaban 20 mg tablet (Xarelto) 20 mg PO DAILY 01/14/21 04/12/22 07/31/21 History Exam Airway Mallampati Class: II TM Dist: >3cm Neck ROM: Full Heart: rrr Lungs: cta Assessment and Plan Assessment Anesthesia Assessment: Anesthesia Plan Discussed and Chart Reviewed Final Anesthetic Review NPO: Yes ASA Class: II Final Preanesthetic Review: No Changes in Pt Med Stat, Meds/Allgs Chart Reviewed, Consent Obtained/Reviewed and Anes Risks/Benef Reviewed Patient Risk: Intermediate Procedure Risk: Intermediate Anesthetic Plan Anesthetic Plan: MAC: Disposition: Standard PACU
[2022-04-16 10:30] VITALS: BP 136/85; PULSE 62; RESP 16; TEMP 369.8; TEMP 697.6; O2SAT 99; BMI 26.5
[2022-04-16] MEDS: Lactated Ringers 1,000 ML 100 ML IVCONT (11:02)
--- NOTE | 2022-04-16 11:32 | MHC.SHP ---
Pre-Procedural Eval Section A Date of Service: 04/16/22 The patient is an INPATIENT: No The History & Physical has been completed within 30 days and I have reviewed it.: No Section B Chief Complaint: Colon cancer screening, Benign neoplasm, Details of Present Illness: Colon cancer screening, history of colon polyps Relevant Family History (Specify if Yes): No Relevant Social History: Tobacco Use (Former smoker) Present Medications: see Short Stay Collaborative assessment Medical History: Significant History (Dyslipidemia History of deep vein thrombosis HTN (hypertension) senior care current use of anticoagulant therapy) History of Previous Operations: Relevant previous surgery/procedure and date(s) (History of surgery Hx of colonoscopy) Allergies: Allergies Allergy/AdvReac Type Severity Reaction Status Date / Time No Known Allergies Allergy Verified 04/07/22 14:42 Review of Systems Sugical H&P ROS: Negative: Constitution, Cardiovascular, Respiratory and Gastrointestinal Exam Surgical H&P Exam: Normal: Heart, Normal: Lungs, Normal: Extremities and Normal: Abdomen Plan Diagnosis/Plan: Unchanged I have reviewed the history and physical and performed a pertinent physical examination on my patient. No changes have occurred unless specified.
--- NOTE | 2022-04-16 11:33 | P.BOP_ITS ---
Brief Operative Note Date of Service: 04/16/22 Pre-op diagnosis: Colon cancer screening, follow-up of colon polyps Post-op diagnosis: other (Colon polyps, diverticulosis, hemorrhoids) Procedure: COLONOSCOPY TILL CECUM WITH BIOPSIES AND SNARE POLYPECTOMY Consent: Indications for the procedure and potential complications of bleeding, perforation, reaction to medications and missed diagnosis were discussed with the patient and informed consent was obtained. Instrument: Olympus PCF H 190 L variable stiffness pediatric colonoscope Monitoring: Vital signs and clinical assessment, intermittent blood pressure monitoring, continuous EKG monitoring, Pulse oximetry and Carbon Dioxide monitoring were done throughout the procedure. Colon withdrawl time was 14 minutes. Procedure: The patient was placed in the left lateral decubitis position and pre-procedure medications were administered. After a digital rectal examination of the ano-rectum, the video colonoscope was inserted into the rectum and advanced through the colon to the cecum. The colonoscope was slowly withdrawn in a retrograde panoramic fashion and the colon mucosa was carefully examined including a retroflexed view of the rectum. Findings and interventions are described below. Procedure Difficulty: Without difficulty Findings: Terminal Ileum: Not evaluated Cecum: Normal Ascending Colon: Polypectomy site at 75 cms (at the hepatic flexure) was examined and no residual polyp was seen. A 12-15 mm sessile polyp noted near the polypectomy site removed with a hot snare. Transverse Colon: Normal Descending Colon: Normal Sigmoid Colon: A 4-5mm diminutive appearing polyp removed with a cold biopsy. Moderate diverticulosis Rectum: Normal Ano-rectum: Small internal hemorrhoids Colon preparation: Good Impression and Post Procedure Diagnosis: Colonoscopy Findings: One medium sized and one small polyps removed Moderate diverticulosis seen in the sigmoid colon Small hemorrhoids on retroflexed exam. Plan: Await pathology results Patient has an appointment on 04/29/22 in the GI Clinic with BRADLY De La Cruz. Repeat Colonoscopy interval based on path results - in 3 years if polyps are adenomatous and due to a hx of multiple colon polyps. Above findings were reviewed with the patient and colon polyps and diverticulosis handouts were given in the discharge area Pt was advised to resume Lovenox Injections tonight, tomorrow (am and pm)and 04/18/22 am. He is to resume Xarelto evening of 04/17/22 Surgeon: Heydi Silver MD Anesthesia: MAC (Dr Law) Was an Varitype Operator used for this Procedure?: Yes Varitype Operator: Angelina Mcdonald Estimated blood loss (mL): 0 Pathology: other (a. Polyp @ hepatic flexsure b. Sigmoid polyp) Condition: stable Disposition: PACU
[2022-04-16 12:34] VITALS: BP 99/62; PULSE 54; RESP 16; TEMP 36.1; O2SAT 98
[2022-04-16 12:49] VITALS: BP 126/81; PULSE 59; RESP 16; TEMP 36.7; O2SAT 98
--- NOTE | 2022-04-16 16:39 | P.OP_ITS ---
Operative Note Operative Note Date of Service: 04/16/22 Narrative: Pre-op diagnosis: Colon cancer screening, follow-up of colon polyps Post-op diagnosis:?other (Colon polyps, diverticulosis, hemorrhoids) Procedure: COLONOSCOPY TILL CECUM WITH BIOPSIES AND SNARE POLYPECTOMY Consent: Indications for the procedure and potential complications of bleeding, perforation, reaction to medications and missed diagnosis were discussed with the patient and informed consent was obtained. Instrument: Olympus PCF H 190 L variable stiffness pediatric colonoscope Monitoring: Vital signs and clinical assessment, intermittent blood pressure monitoring, continuous EKG monitoring, Pulse oximetry and Carbon Dioxide monitoring were done throughout the procedure. Colon withdrawl time was 14 minutes. Procedure: The patient was placed in the left lateral decubitis position and pre-procedure medications were administered. After a digital rectal examination of the ano-rectum, the video colonoscope was inserted into the rectum and advanced through the colon to the cecum. The colonoscope was slowly withdrawn in a retrograde panoramic fashion and the colon mucosa was carefully examined including a retroflexed view of the rectum. Findings and interventions are described below. Procedure Difficulty: Without difficulty Findings: Terminal Ileum: Not evaluated Cecum:? Normal Ascending Colon:? Polypectomy site at 75 cms (at the hepatic flexure) was examined and no residual polyp was seen.? A 12-15 mm sessile polyp noted near the polypectomy site removed with a hot snare. Transverse Colon:? Normal Descending Colon:? Normal Sigmoid Colon:? A 4-5mm diminutive appearing polyp removed with a cold biopsy.? Moderate diverticulosis Rectum:? Normal Ano-rectum:? Small internal hemorrhoids Colon preparation:? Good? Impression and Post Procedure Diagnosis: Colonoscopy Findings: One medium sized and one small polyps removed Moderate diverticulosis seen in the sigmoid colon Small hemorrhoids on retroflexed exam. Plan: Await pathology results Patient has an appointment on 04/29/22 in the GI Clinic with BRADLY De La Cruz. Repeat Colonoscopy interval based on path results - in 3 years if polyps are adenomatous and due to a hx of multiple colon polyps. Above findings were reviewed with the patient and colon polyps and diverticulosis handouts were given in the discharge area Pt was advised to resume Lovenox Injections tonight, tomorrow (am and pm)and 04/18/22 am. He is to resume Xarelto evening of 04/17/22 Surgeon: Heydi Silver MD Anesthesia:?MAC (Dr Law) Was an Balance Engineer used for this Procedure?:?Yes Balance Engineer:?Angelina Mcdonald Estimated blood loss (mL):?0 Pathology:?other (a. Polyp @ hepatic flexsure? b. Sigmoid polyp) Condition:?stable Disposition:?PACU
== END 2022-04-16 13:20 | disposition home or self-care (01) ==
PROVIDERS: PCP Nurse Practitioner Family; Visit Provider Internal Medicine Gastroenterology
PROC: 0DJD8ZZ Inspection of Lower Intestinal Tract, Via Natural or Artificial Opening Endoscopic (ICD-10-PCS; CPT 45378; principal; 2022-04-16 11:50)
DX: Z12.11 Encounter for screening for malignant neoplasm of colon (principal); Z86.010 Personal history of colon polyps; K63.5 Polyp of colon; K57.30 Diverticulosis of large intestine without perforation or abscess without bleeding; K64.8 Other hemorrhoids; I10 Essential (primary) hypertension; E78.5 Hyperlipidemia, unspecified; Z79.899 Other long term (current) drug therapy; Z86.718 Personal history of other venous thrombosis and embolism; Z79.01 Long term (current) use of anticoagulants; Z87.891 Personal history of nicotine dependence
CPT/HCPCS: 45385; 45380; 88305

== ENCOUNTER 2022-06-01 14:34 | Outpatient (REF) | payer BC, SELFPAY ==
[2022-06-01 17:02] LABS: Urine Cytology See Pathology rpt
== END 2022-06-01 14:35 | disposition home or self-care (01) ==
LOC: HO.LAB 14:34
DX: R31.9 Hematuria, unspecified (principal)
CPT/HCPCS: 88112

== ENCOUNTER 2023-04-21 06:06 | Outpatient (REF) | payer BC, SELFPAY ==
[2023-04-21 08:59] LABS: Appearance Urine Clear; Color Urine Yellow; Glucose Urine UA Negative (Negative); Leukocyte Esterase Urine Negative (Negative); Nitrite Urine Negative (Negative); Urine Blood Negative (Negative); Urine Ketones Negative (Negative); Urine Protein Negative (Neg-Trace)
[2023-04-21 09:09] LABS: MANUAL DIFF FLAG NO
[2023-04-21 09:21] LABS: Basophils Percent Auto 0.5 % (0-2); Eosinophils Absolute Auto 0.4 X10*3/uL (0.0-0.4); Eosinophils Percent Auto 4.8 % (0-4); Hematocrit 42.1 % (42.0-52.0); Hemoglobin 14.3 g/dl (14.0-18.0); Imm Gran Abs Auto 0.02 X10*3/uL (0.00-0.03); Imm Gran Pct Auto 0.3 % (0.0-0.4); Lymphocytes Absolute Auto 2.3 X10*3/uL (1.2-4.9); Lymphocytes Percent Auto 31.6 % (20-40); Mean Corpuscular Hemoglobin 30.9 pg (27.0-33.0); Mean Corpuscular Volume 90.9 fL (80.0-98.0); Mean Platelet Volume 8.7 fL (9.4-12.4); Monocytes Absolute Auto 0.6 X10*3/uL (0.1-1.2); Monocytes Percent Auto 8.3 % (2-11); Neutrophils Percent Auto 54.5 % (45-73); Platelet Count 403 X10*3/uL (160-400); Red Blood Count 4.63 X10*6/uL (4.60-5.80); Red Cell Distribution Width 12.1 % (11.0-16.0); White Blood Count 7.3 X10*3/uL (4.8-10.8)
[2023-04-21 09:50] LABS: Alanine Aminotransferase 16 U/L (0-40); Albumin Level 4.4 g/dL (3.5-5.0); Alkaline Phosphatase 68 U/L (39-117); Anion Gap 10 (12-20); Aspartate Amino Transferase 17 U/L (5-37); Bilirubin Total 0.5 mg/dL (0.0-1.0); Blood Urea Nitrogen 16 mg/dL (9-16); Calcium 9.1 mg/dL (8.4-10.2); Carbon Dioxide 28 mmol/L (22-29); Chloride 107 mmol/L (96-108); Cholesterol 165 mg/dL; Estimated Glomerular Filt Rate > 60; Glucose Fasting 104 mg/dL (60-99); HDL Cholesterol 43 mg/dL; LDL Cholesterol Calculated 94 mg/dl; Prostate Specific Antigen Scr 0.39 ng/mL (<0.05-4.0); Sodium 141 mmol/L (135-145); Total Protein 7.2 g/dL (6.5-8.0); Triglycerides 140 mg/dL
== END 2023-04-21 06:07 | disposition home or self-care (01) ==
LOC: HO.HMGCLDS 06:06
PROVIDERS: PCP Nurse Practitioner Family; Visit Provider Nurse Practitioner Family
DX: Z00.00 Encounter for general adult medical examination without abnormal findings (principal); Z20.2 Contact with and (suspected) exposure to infections with a predominantly sexual mode of transmission; Z12.5 Encounter for screening for malignant neoplasm of prostate; E78.5 Hyperlipidemia, unspecified; Z13.220 Encounter for screening for lipoid disorders
CPT/HCPCS: 36415; 80053; 80061; 81003; 84153; 84443; 85025

== ENCOUNTER 2024-04-10 06:05 | Outpatient (REF) | payer BC, SELFPAY ==
[2024-04-10 10:19] LABS: MANUAL DIFF FLAG NO
[2024-04-10 10:32] LABS: Appearance Urine Clear; Color Urine Yellow; Glucose Urine UA Negative (Negative); Leukocyte Esterase Urine Negative (Negative); Nitrite Urine Negative (Negative); PH 5.5 (5.0-9.0); Urine Blood Negative (Negative); Urine Ketones Negative (Negative); Urine Protein Negative (Neg-Trace)
[2024-04-10 10:47] LABS: Basophils Absolute Auto 0.1 X10*3/uL (0.0-0.2); Basophils Percent Auto 0.7 % (0-2); Eosinophils Absolute Auto 0.4 X10*3/uL (0.0-0.4); Eosinophils Percent Auto 6.3 % (0-4); Hematocrit 42.2 % (42.0-52.0); Hemoglobin 14.2 g/dl (14.0-18.0); Imm Gran Abs Auto 0.02 X10*3/uL (0.00-0.03); Imm Gran Pct Auto 0.3 % (0.0-0.4); Lymphocytes Absolute Auto 2.2 X10*3/uL (1.2-4.9); Lymphocytes Percent Auto 31.7 % (20-40); Mean Corpuscular HGB Conc 33.6 g/dl (31.0-36.0); Mean Corpuscular Hemoglobin 30.9 pg (27.0-33.0); Mean Corpuscular Volume 91.7 fL (80.0-98.0); Mean Platelet Volume 8.6 fL (9.4-12.4); Monocytes Absolute Auto 0.5 X10*3/uL (0.1-1.2); Monocytes Percent Auto 7.7 % (2-11); Neutrophils Absolute Auto 3.7 x10*3/uL (2.0-8.3); Neutrophils Percent Auto 53.3 % (45-73); Platelet Count 386 X10*3/uL (160-400); Red Cell Distribution Width 12.1 % (11.0-16.0)
[2024-04-10 11:20] LABS: Prostate Specific Antigen Scr 0.43 ng/mL (<0.05-4.0)
[2024-04-10 11:30] LABS: Alanine Aminotransferase 17 U/L (0-40); Albumin Level 4.5 g/dL (3.5-5.0); Alkaline Phosphatase 65 U/L (39-117); Anion Gap 12 (12-20); Aspartate Amino Transferase 19 U/L (5-37); Bilirubin Total 0.6 mg/dL (0.0-1.0); Blood Urea Nitrogen 15 mg/dL (9-16); Calcium 9.5 mg/dL (8.4-10.2); Carbon Dioxide 25 mmol/L (22-29); Chloride 105 mmol/L (96-108); Cholesterol 162 mg/dL (<200); Estimated Glomerular Filt Rate > 60; Glucose Fasting 104 mg/dL (60-99); HDL Cholesterol 43 mg/dL (>40); LDL Cholesterol Calculated 92 mg/dL (<100); Potassium 4.1 mmol/L (3.3-5.1); Sodium 138 mmol/L (135-145); TSH reflex Free T4 2.09 uIU/mL (0.32-4.0); Total Protein 7.1 g/dL (6.5-8.0); Triglycerides 137 mg/dL (<150)
== END 2024-04-10 06:06 | disposition home or self-care (01) ==
LOC: HO.HMGCLDS 06:05
PROVIDERS: PCP Nurse Practitioner Family; Visit Provider Nurse Practitioner Family
DX: Z00.00 Encounter for general adult medical examination without abnormal findings (principal); Z12.5 Encounter for screening for malignant neoplasm of prostate; Z13.6 Encounter for screening for cardiovascular disorders
CPT/HCPCS: 36415; 80053; 80061; 81003; 84153; 84443; 85025

== ENCOUNTER 2024-07-19 12:52 | Outpatient (AMB) | payer BC, SELFPAY ==
--- NOTE | 2024-07-19 12:56 | A.OFFPC_ITS ---
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 Accompanied by: Self / Same As Patient Allergies No Known Allergies Allergy (Verified 07/19/24 12:57) Medication List - Last Reconciled 07/19/24 by YAIMA Mcknight atorvastatin 10 mg PO DAILY gemfibrozil 600 mg PO BID 90 days lisinopril 10 mg PO DAILY rivaroxaban (Xarelto) 20 mg PO DAILY Tobacco use date assessed: 07/19/24 Dental Screening Dental Screen Date: 07/19/24 Did you have a dental visit in the last 12 months?: Yes Did you have a dental problem in the last 6 months where you did not have access to dental care?: No Was dental information given to patient?: Patient has dentist HPI PE HPI Details Pt is here for a PE. Will order labs. Colon screen is up to date. PSA is up to date. Denies dribbling with urination, weak stream, and frequent nocturia. Pt's blood pressure is elevated today. He is currently taking lisinopril 10mg, will increase this to 20mg. Will have pt monitor his blood pressure at home and drop off values in the near future. Denies chest pain, shortness of breath, headache, dizziness, and blurred vision. 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 Surgical History History of surgery Hx of colonoscopy Family History Mother Breast cancer Hypertension Father Lung cancer Hypertension Substance use disorder Maternal Grandfather Skin cancer Paternal Grandfather Colon cancer Substance use disorder Sister Skin cancer Maternal Grandfather Substance use disorder Social History Household Members: Spouse Housing: House Are you a primary account executive healthcare to a significant other at home: No Do you presently have visiting nurse or other home services: No Alcohol intake: current Alcohol intake frequency: 3 or more drinks per day Alcohol type: beer Patient Tobacco Use Status: Former Tobacco user Tobacco use type: Cigarette Cigarette Packs Per Day: 1.5 Years Smoked: over 20 years ago e-Cigarette/Vaping Use: Never Used Second Hand Smoke Exposure: No service: Yes Current occupational status: employed 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 1. Little interest or pleasure in doing things: not at all 2. Feeling down, depressed, or hopeless: not at all 3. Trouble falling or staying asleep, or sleeping too much: not at all 4. Feeling tired or having little energy: several days 5. Poor appetite or overeating: not at all 6. Feeling bad about yourself - or that you are a failure or have let yourself or your family down: not at all 7. Trouble concentrating on things, such as reading the newspaper or watching television: not at all 8. Moving or speaking so slowly that other people could have noticed. Or the opposite - being so fidgety or restless that you have been moving around a lot more than usual: not at all 9. Thoughts that you would be better off or of hurting yourself in some way: not at all Total score: 1 Depression Screening Interpretation: Negative Depression Screening Done: Yes 65588 - PHQ-9 Billing: Yes Source: Developed by Drs. Darwin White, Jessenia Paul, Jose J Ruggiero and colleagues, with an educational wayne from [employer]. Thrive Questionnaire Date Thrive assessed: 07/19/24 I am a: Patient What is your living situation today?: I have a steady place to live Within the past 12 months, did the food you bought not last and you didn't have the money to get more?: Never true Within the past 12 months, did you worry whether your food would run out before you got money to buy more?: Never true Do you have trouble paying for medicines?: No Do you have trouble getting transportation to medical appointments?: No Do you have trouble paying your heating and electricity bill?: No Do you have trouble taking care of your child, family member or friend?: No Do you have trouble with day-to-day activities such as bathing, preparing meals, shopping, managing finances, etc.?: No Are you currently unemployed and looking for a job?: No Are you interested in more education?: No Please select the resources that you would like help with: None Currently or been in a relationship where the following occur: No concerns reported THRIVE Score: 0 AUDIT C Alcohol Use Questionnaire (AUDIT-C) 1. How often do you have a drink containing alcohol?: 4 or more times a week 2. How many drinks containing alcohol do you have on a typical day when you are drinking?: 1 or 2 3. How often do you have six or more drinks on one occasion?: Less than monthly Total Score: 5 Score Reviewed/Action Taken: Yes SHARI-7 AMB Questionnaire SHARI-7 Date SHARI - 7 assessed: 07/19/24 Feeling nervous, anxious, or on edge: 0 = Not at all Not being able to stop or control worryin = Not at all Worrying too much about different things: 0 = Not at all Trouble relaxin = Not at all Being so restless that it is hard to sit still: 0 = Not at all Becoming easily annoyed or irritable: 0 = Not at all Feeling afraid as if something awful might happen: 0 = Not at all Total SHARI-7 score (0-4 normal; 5-9 mild; 10-14 moderate; 15-21 severe): 0 Source: Developed by Drs. Darwin White, Jessenia Paul, Jose J Ruggiero and colleagues, with an educational wayne from [employer]. SHARI-7 Assessment Billing SHARI-7 Assessment Tool: SHARI-7 Assessment 30509 Review of Systems Const Denies chills and Denies fever(s) Eyes Denies blurry vision ENT Denies vertigo, Denies dizziness and Denies sore throat Card Denies chest pain at rest, Denies chest pain with activity, Denies diaphoresis, Denies dyspnea and Denies dyspnea on exertion Resp Denies cough, Denies dyspnea, Denies dyspnea on exertion and Denies wheezing GI Denies abdominal pain, Denies melena, Denies hematochezia, Denies constipation, Denies diarrhea and Denies loose stools Denies hematuria Musc Denies numbness and Denies tingling Skin/Breast Denies lesions Neuro Denies vertigo, Denies dizziness, Denies numbness and Denies tingling Psych Denies anxiety, Denies depression, Denies homicidal ideation, Denies suicidal ideation and Denies other (substance abuse) Aller/Immun Denies wheezing Physical exam (Primary Care) Vital Signs: Last Vital Signs Pulse 67 07/19/24 12:57 BP 168/94 H 07/19/24 12:57 Pulse Ox 98 07/19/24 12:57 BMI result Body Mass Index 27.3 Tobacco/Smoking Status: Tobacco use Status Tobacco use date assessed 07/19/24 07/19/24 12:58 Patient Tobacco Use Status Former Tobacco user 07/19/24 12:58 Tobacco use type Cigarette 07/19/24 12:58 e-Cigarette/Vaping Use Never Used 07/19/24 12:58 PHQ-9: PHQ-9 Score PHQ-9: Total score 1 07/19/24 13:19 Depression Screening Interpretation: Negative Thrive Assessment: Date of Thrive Assessment Date Thrive assessed 07/19/24 07/19/24 12:58 Currently or been in a relationship where the following occur: No concerns reported Const General: cooperative Nutritional Appearance: well nourished Orientation/consciousness: patient oriented x3 HENMT Head: Yes normal to inspection, Yes normocephalic and Yes atraumatic Ears: TM's normal bilaterally Eyes General: appearance normal, both eyes and all related structures Alignment and Position: alignment normal and position normal Neck Neck: Yes normal visual inspection, Yes no lymphadenopathy and Yes supple Resp Effort & Inspection: normal respiratory effort Auscultation: clear to auscultation bilaterally Cardio Rate: regular rate Rhythm: regular rhythm Heart sounds: S1 normal heart sound present, S2 normal heart sound present and no murmurs GI Palpation (GI): Soft to palpation and nontender Auscultation: normal bowel sounds Male General Exam: Yes normal external exam Penis: normal penis Scrotum: scrotum normal, testes descended bilaterally and no inguinal hernias Testes: no testicular mass Skin Rashes: no rashes Neuro General: patient oriented x3, moves all extremities, no focal motor deficits and deep tendon reflexes 2+ bilaterally Romberg Test: Negative Psych Appearance: grossly normal Mental Status: mental status grossly normal Speech and movement: Normal speech and movement present Affect: normal affect Attitude: cooperative Thought process: Normal thought process present Thought content: Normal thought content present Insight: Good insight present (Psych) Judgement: Good judgement present (Psych) Assessment and Plan Assessment & Plan (1) Physical exam: Code(s): Z00.00 - Encounter for general adult medical examination without abnormal findings Plan: Labs ordered (2) Screening PSA (prostate specific antigen): Code(s): Z12.5 - Encounter for screening for malignant neoplasm of prostate Plan: PSA ordered (3) HTN (hypertension): Code(s): I10 - Essential (primary) hypertension Plan: Increasing lisinopril from 10mg to 20mg, pt will monitor BP at home and drop off values in the near future Plan The patient agreed to the use of a medical terminologist for this encounter. Scribed for SHEN Alvarez-FLORA by Tatiana Maldonado medical terminologist, on 07/19/2024 at 13:20 EST. Orders: Orders Complete Blood Count Auto Diff Today Z00.00 - Encounter for general adult medical examination without abnormal findings Lipid Panel Today Z00.00 - Encounter for general adult medical examination without abnormal findings Comprehensive [place]. Panel Fast Today Z00.00 - Encounter for general adult medical examination without abnormal findings TSH reflex Free T4 Today Z00.00 - Encounter for general adult medical examination without abnormal findings UA CC w/rflx Micro + Cult Today Z00.00 - Encounter for general adult medical examination without abnormal findings Medications: Changed From lisinopril 10 mg PO DAILY 90 tabs 1RF To lisinopril 20 mg PO DAILY 90 tabs 1RF Coding Level of Care Code Est Pt Prev Care 40-64y(17517) Diagnoses Physical exam Z00.00 Screening PSA (prostate specific antigen) Z12.5 HTN (hypertension) I10 Additional Codes SHARI-7 Assessment Billing - SHARI-7 Assessment Tool: SHARI-7 Assessment 05045 ([id number])
[2024-07-19 12:57] VITALS: BP 168/94; PULSE 67; O2SAT 98; BMI 27.3
[2024-07-19 13:39] VITALS: BP 158/96
== END 2024-07-19 13:51 | disposition home or self-care (01) ==
PROVIDERS: PCP Nurse Practitioner Family; Visit Provider Nurse Practitioner Family
DX: Z00.00 Encounter for general adult medical examination without abnormal findings (principal); Z12.5 Encounter for screening for malignant neoplasm of prostate; I10 Essential (primary) hypertension
CPT/HCPCS: 99396

== ENCOUNTER 2024-08-23 06:01 | Outpatient (REF) | payer BC, SELFPAY ==
[2024-08-23 10:13] LABS: MANUAL DIFF FLAG NO
[2024-08-23 10:19] LABS: Basophils Percent Auto 0.6 % (0-2); Eosinophils Absolute Auto 0.3 X10*3/uL (0.0-0.4); Eosinophils Percent Auto 4.1 % (0-4); Hematocrit 41.8 % (42.0-52.0); Hemoglobin 14.1 g/dl (14.0-18.0); Imm Gran Abs Auto 0.02 X10*3/uL (0.00-0.03); Imm Gran Pct Auto 0.3 % (0.0-0.4); Lymphocytes Absolute Auto 2.2 X10*3/uL (1.2-4.9); Lymphocytes Percent Auto 31.1 % (20-40); Mean Corpuscular HGB Conc 33.7 g/dl (31.0-36.0); Mean Corpuscular Hemoglobin 30.9 pg (27.0-33.0); Mean Corpuscular Volume 91.7 fL (80.0-98.0); Mean Platelet Volume 8.8 fL (9.4-12.4); Monocytes Absolute Auto 0.6 X10*3/uL (0.1-1.2); Monocytes Percent Auto 8.4 % (2-11); Neutrophils Percent Auto 55.5 % (45-73); Platelet Count 415 X10*3/uL (160-400); Red Blood Count 4.56 X10*6/uL (4.60-5.80); Red Cell Distribution Width 12.2 % (11.0-16.0); White Blood Count 7.1 X10*3/uL (4.8-10.8)
[2024-08-23 10:24] LABS: Appearance Urine Clear; Color Urine Yellow; Glucose Urine UA Negative (Negative); Leukocyte Esterase Urine Negative (Negative); Nitrite Urine Negative (Negative); PH 5.5 (5.0-9.0); Urine Blood Negative (Negative); Urine Ketones Negative (Negative); Urine Protein Negative (Neg-Trace)
[2024-08-23 11:08] LABS: Alanine Aminotransferase 16 U/L (0-40); Albumin Level 4.4 g/dL (3.5-5.0); Alkaline Phosphatase 72 U/L (39-117); Anion Gap 11 (12-20); Aspartate Amino Transferase 16 U/L (5-37); Bilirubin Total 0.5 mg/dL (0.0-1.0); Blood Urea Nitrogen 15 mg/dL (9-16); Calcium 9.3 mg/dL (8.4-10.2); Carbon Dioxide 27 mmol/L (22-29); Chloride 107 mmol/L (96-108); Cholesterol 156 mg/dL (<200); Estimated Glomerular Filt Rate > 60; Glucose Fasting 96 mg/dL (60-99); HDL Cholesterol 41 mg/dL (>40); LDL Cholesterol Calculated 85 mg/dL (<100); Potassium 4.1 mmol/L (3.3-5.1); Sodium 141 mmol/L (135-145); Total Protein 6.9 g/dL (6.5-8.0); Triglycerides 151 mg/dL (<150)
[2024-08-23 11:29] LABS: TSH reflex Free T4 1.68 uIU/mL (0.32-4.0)
== END 2024-08-23 06:02 | disposition home or self-care (01) ==
LOC: HO.HMGCLDS 06:01
PROVIDERS: PCP Nurse Practitioner Family; Visit Provider Nurse Practitioner Family
DX: Z00.00 Encounter for general adult medical examination without abnormal findings (principal)
CPT/HCPCS: 36415; 80053; 80061; 81003; 84443; 85025

== ENCOUNTER 2024-10-27 09:15 | Outpatient (REF) | payer BC, SELFPAY ==
[2024-10-27 11:10] LABS: MANUAL DIFF FLAG NO
[2024-10-27 11:20] LABS: Basophils Absolute Auto 0.1 X10*3/uL (0.0-0.2); Basophils Percent Auto 0.7 % (0-2); Eosinophils Absolute Auto 0.3 X10*3/uL (0.0-0.4); Eosinophils Percent Auto 3.4 % (0-4); Hematocrit 41.1 % (42.0-52.0); Hemoglobin 14.2 g/dl (14.0-18.0); Imm Gran Abs Auto 0.02 X10*3/uL (0.00-0.03); Imm Gran Pct Auto 0.2 % (0.0-0.4); Lymphocytes Absolute Auto 2.7 X10*3/uL (1.2-4.9); Lymphocytes Percent Auto 32.9 % (20-40); Mean Corpuscular HGB Conc 34.5 g/dl (31.0-36.0); Mean Corpuscular Hemoglobin 31.2 pg (27.0-33.0); Mean Corpuscular Volume 90.3 fL (80.0-98.0); Mean Platelet Volume 8.7 fL (9.4-12.4); Monocytes Absolute Auto 0.6 X10*3/uL (0.1-1.2); Monocytes Percent Auto 7.5 % (2-11); Neutrophils Absolute Auto 4.5 x10*3/uL (2.0-8.3); Neutrophils Percent Auto 55.3 % (45-73); Platelet Count 413 X10*3/uL (160-400); Red Blood Count 4.55 X10*6/uL (4.60-5.80); Red Cell Distribution Width 12.1 % (11.0-16.0); White Blood Count 8.1 X10*3/uL (4.8-10.8)
== END 2024-10-27 09:16 | disposition home or self-care (01) ==
LOC: HO.HMGCLDS 09:15
PROVIDERS: PCP Nurse Practitioner Family; Visit Provider Nurse Practitioner Family
DX: I10 Essential (primary) hypertension (principal)
CPT/HCPCS: 36415; 85025

== ENCOUNTER 2024-11-16 12:11 | Outpatient (AMB) | payer BC, SELFPAY ==
[2024-11-16 12:39] VITALS: BP 120/80; PULSE 77; TEMP 36.9; O2SAT 98
--- NOTE | 2024-11-16 12:39 | MHC.OFFWIV ---
Intake Vital Signs 11/16/24 12:39 Weight 189 lb BP 120/80 Blood Pressure Location Rt brachial Position Sitting Pulse 77 Pulse Source Pulse Oximeter Temp 98.5 F Temp Source Oral Pulse Oximetry (%) 98 Oxygen Delivery Method Room Air Intake Visit Reasons: EP ?Sinus infection Intake Note: Patient here for sinus congestion and pressure that started tuesday. Patient Tobacco Use Status: Former Tobacco user Allergies No Known Allergies Allergy (Verified 11/16/24 12:43) Do you need a note to return to daycare/school/sports/work: No HPI EP ?Sinus infection HPI Details This is a 54 year old male patient who presents to the [place] [facility] today for report of sinus/facial pressure for the last 5 days. He states he has yellow sputum in the mornings, and otherwise has facial pressure throughout the day. Has been taking an otc decongestant without relief. He denies any fever, chills, body aches. Denies any GI symptoms. States that he gets a sinus infection similar to this about once per year. 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 Surgical History History of surgery Hx of colonoscopy Family History Mother Breast cancer Hypertension Father Lung cancer Hypertension Substance use disorder Maternal Grandfather Skin cancer Paternal Grandfather Colon cancer Substance use disorder Sister Skin cancer Maternal Grandfather Substance use disorder Social History Household Members: Spouse Housing: House Are you a primary laboratory animal care veterinarian to a significant other at home: No Do you presently have visiting nurse or other home services: No Alcohol intake: current Alcohol intake frequency: 3 or more drinks per day Alcohol type: beer Patient Tobacco Use Status: Former Tobacco user Tobacco use type: Cigarette Cigarette Packs Per Day: 1.5 Years Smoked: over 20 years ago e-Cigarette/Vaping Use: Never Used Second Hand Smoke Exposure: No service: Yes Current occupational status: employed 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 Current occupational exposures/hazards: No Cognitive needs: No Hearing needs: No Vision needs: No Review of Systems Const All systems reviewed & are unremarkable except as noted in HPI and below Physical Exam Vital Signs: Last Vital Signs Temp 98.5 F 11/16/24 12:39 Pulse 77 11/16/24 12:39 BP 120/80 11/16/24 12:39 Pulse Ox 98 11/16/24 12:39 Oxygen Delivery Method Room Air 11/16/24 12:39 Const General: cooperative, healthy appearing, comfortable and no acute distress Limitations: no limitations HEENT Head: Yes normal to inspection Ears: hearing grossly normal bilaterally General nose exam: Normal external nose present and Normal nares present Face and sinus: Yes sinus tenderness (frontal/maxillary) Mouth: Normal oral and palatal mucosa present Throat: Yes posterior oropharynx abnormal (mild erythema) Neck Neck: Yes no lymphadenopathy Resp Effort & Inspection: normal respiratory effort Auscultation: clear to auscultation bilaterally Cardio Rate: regular rate Rhythm: regular rhythm Skin General skin exam: no rashes or lesions noted Extrem General: Yes capillary refill normal and Yes no clubbing, cyanosis or edema Psych Appearance: grossly normal Mental Status: mental status grossly normal Speech and movement: Normal speech and movement present Assessment & Plan Assessment & Plan (1) Maxillary sinusitis, acute: Code(s): J01.00 - Acute maxillary sinusitis, unspecified Qualifiers: Recurrence: non-recurrent Qualified Code(s): J01.00 - Acute maxillary sinusitis, unspecified Plan: Has done well previously for similar illness with azithromycin. Will send this today. We reviewed indications, use, possible side effects of medication. Advised additional conservative measures with decongestants, saline nasal spray, Tylenol as needed. If he does not improve with plan discussed today, he can return to the clinic for further evaluation. Patient verbalizes understanding and agrees to plan. Medications: New azithromycin For 250 mg dose pack: take 500 mg today (day 1), then 250 mg for 4 days (days 2-5) PO 6 tabs 0RF J01.00 - Acute maxillary sinusitis, unspecified Coding Level of Care Code Est Pt Level 4 (04205) Diagnoses Acute non-recurrent maxillary sinusitis J01.00 Recurrence: non-recurrent
== END 2024-11-16 13:19 | disposition home or self-care (01) ==
PROVIDERS: PCP Nurse Practitioner Family; Visit Provider Nurse Practitioner Family
DX: J01.00 Acute maxillary sinusitis, unspecified (principal)

== ENCOUNTER 2024-11-24 08:35 | Outpatient (REF) | payer BC, SELFPAY ==
[2024-11-24 12:08] LABS: MANUAL DIFF FLAG NO
[2024-11-24 12:15] LABS: Basophils Percent Auto 0.5 % (0-2); Eosinophils Absolute Auto 0.2 X10*3/uL (0.0-0.4); Hemoglobin 13.9 g/dl (14.0-18.0); Imm Gran Abs Auto 0.02 X10*3/uL (0.00-0.03); Imm Gran Pct Auto 0.3 % (0.0-0.4); Lymphocytes Absolute Auto 2.8 X10*3/uL (1.2-4.9); Mean Corpuscular HGB Conc 34.8 g/dl (31.0-36.0); Mean Corpuscular Hemoglobin 31.2 pg (27.0-33.0); Mean Corpuscular Volume 89.9 fL (80.0-98.0); Mean Platelet Volume 8.4 fL (9.4-12.4); Monocytes Absolute Auto 0.4 X10*3/uL (0.1-1.2); Monocytes Percent Auto 4.7 % (2-11); Neutrophils Absolute Auto 4.3 x10*3/uL (2.0-8.3); Neutrophils Percent Auto 55.5 % (45-73); Platelet Count 455 X10*3/uL (160-400); Red Blood Count 4.45 X10*6/uL (4.60-5.80); White Blood Count 7.7 X10*3/uL (4.8-10.8)
[2024-11-24 12:38] LABS: Alanine Aminotransferase 16 U/L (0-40); Albumin Level 4.3 g/dL (3.5-5.0); Alkaline Phosphatase 79 U/L (39-117); Anion Gap 9 (12-20); Aspartate Amino Transferase 22 U/L (5-37); Bilirubin Total 0.4 mg/dL (0.0-1.0); Blood Urea Nitrogen 15 mg/dL (9-16); Calcium 8.9 mg/dL (8.4-10.2); Carbon Dioxide 26 mmol/L (22-29); Chloride 110 mmol/L (96-108); Estimated Glomerular Filt Rate > 60; Glucose Random 101 mg/dL (60-115); Sodium 141 mmol/L (135-145); Total Protein 7.2 g/dL (6.5-8.0)
== END 2024-11-24 08:36 | disposition home or self-care (01) ==
LOC: HO.HMGCLDS 08:35
PROVIDERS: PCP Nurse Practitioner Family; Visit Provider Nurse Practitioner Family
DX: R79.89 Other specified abnormal findings of blood chemistry (principal); I10 Essential (primary) hypertension
CPT/HCPCS: 36415; 80053; 85025

== ENCOUNTER 2025-01-16 11:23 | Outpatient (AMB) | payer BC, SELFPAY ==
[2025-01-16 11:44] VITALS: BP 124/84; PULSE 68; TEMP 36.7; O2SAT 97; BMI 27.0
--- NOTE | 2025-01-16 11:44 | MHC.PC.OV ---
Vital Signs 01/16/25 11:44 Height 5 ft 10 in Weight 188 lb BMI 27.0 BP 124/84 Blood Pressure Location Lt brachial Position Sitting Pulse 68 Pulse Source Pulse Oximeter Temp 98.0 F Temp Source Oral Pulse Oximetry (%) 97 Intake Visit Reasons: 6M F/U Intake Note: pt is here for 6 mon f.up [employer] Service Technician Required: No Accompanied by: Self / Same As Patient Allergies No Known Allergies Allergy (Verified 01/16/25 12:23) Medication List - Last Reconciled 01/16/25 by SHEN Mcknight- atorvastatin 10 mg PO DAILY gemfibrozil 600 mg PO BID 90 days lisinopril 30 mg PO DAILY 90 days rivaroxaban (Xarelto) 20 mg PO DAILY Tobacco use date assessed: 01/16/25 Dental Screening Dental Screen Date: 01/16/25 Did you have a dental visit in the last 12 months?: Yes Did you have a dental problem in the last 6 months where you did not have access to dental care?: No Was dental information given to patient?: Patient has dentist HPI 6M F/U HPI Details Chief Complaint The patient is presenting for a follow-up for hypertension and dyslipidemia. History of Present Illness The patient is a 54-year-old male presenting for a follow-up evaluation of hypertension and dyslipidemia. His hypertension and dyslipidemia have been managed with antihypertensive therapy and lipid-lowering interventions, respectively. Currently on a statin and gemfibrozil. He has implemented significant lifestyle changes, including regular gym attendance resulting in weight loss and an improved diet. He reports feeling well and denies experiencing any chest pain, shortness of breath, blurred vision, or headaches. The patient is also under long-term anticoagulant therapy for a previous DVT and plans a future follow-up consultation with his security analyst. He reports stability in his DVT condition without any worsening symptoms. The patient's vitals and lab tests from previous visits did not indicate any alarming changes, and current management strategies appear effective. Social History - Exercising regularly by attending the gym. - Improved dietary habits, although specific dietary details were not discussed. - Weight management through regular physical activity leading to weight loss. Health Maintenance - Scheduled lab re-evaluation in 2-3 months for cholesterol, liver function, and kidney function. - Follow-up with security analyst for management of DVT. Review of Systems - Cardiovascular: Denies chest pain. - Respiratory: Denies shortness of breath. - Eyes: Denies blurred vision. - Neurological: Denies headaches. Physical Exam General: Cooperative, healthy appearing, comfortable, no acute distress and well developed Orientation: Patient oriented x3 Limitations: No limitations Head: Normal to inspection Ears: Hearing grossly normal bilaterally Nose: Normal external nose present Face and sinus: Normal facial exam Eyes: Appearance normal, both eyes and all related structures Neck: Normal visual inspection and Yes full ROM Respiratory: Normal respiratory effort and able to speak in complete sentences. Clear to auscultation bilaterally Cardiovascular: Regular rate and rhythm. Normal S1 and S2 GI: Normal to inspection. Soft to palpation and nontender Skin: No rashes or lesions noted Neuro: Patient oriented x3 Extremities: Normal to inspection Results Plan The patient will continue his current treatment regimen for essential hypertension and dyslipidemia, including antihypertensive and lipid-lowering medications, coupled with lifestyle modifications such as exercise and healthy eating. A laboratory re-evaluation is set for cholesterol, liver, and kidney function in two to three months to monitor the patient?s status. For the DVT, ongoing anticoagulation therapy should be sustained with structured follow-up by a security analyst. A comprehensive physical examination is scheduled for July to further assess the patient's overall health condition. Discussion Notes During our discussion, I emphasized the importance of ongoing adherence to prescribed hypertension and dyslipidemia management plans, which include medication and lifestyle changes. We discussed the risks, benefits, and alternatives of current treatments, underscoring the positive outcomes achieved thus far. I confirmed the importance of the scheduled lab tests to monitor the patient?s lipid profile, liver, and kidney functions, and the need for continued active management of DVT with anticoagulants, advising a follow-up with his security analyst. Additionally, I reiterated the arrangements for a complete examination on the date of the next visit in July to reassess his health status in detail. The patient expressed understanding and agreement with the plan. Patient Instructions - Continue regular gym exercise and healthy dietary habits. - Adhere to prescribed antihypertensive and lipid-lowering medications. - Follow up with a security analyst about ongoing DVT management. - Schedule follow-up lab evaluations for cholesterol, liver, and kidney function in the next 2 to 3 months. - Return for a full physical examination in July. FOR[facility]LY [facility] Medical History COVID-19 vaccine series completed Dyslipidemia HTN (hypertension) History of deep vein thrombosis alf current use of anticoagulant therapy Surgical History History of surgery Hx of colonoscopy Family History Mother Breast cancer Hypertension Father Lung cancer Hypertension Substance use disorder Maternal Grandfather Skin cancer Paternal Grandfather Colon cancer Substance use disorder Sister Skin cancer Maternal Grandfather Substance use disorder Social History Household Members: Spouse Housing: House Are you a primary professional healthcare representative to a significant other at home: No Do you presently have visiting nurse or other home services: No Alcohol intake: current Alcohol intake frequency: 3 or more drinks per day Alcohol type: beer Patient Tobacco Use Status: Former Tobacco user Tobacco use type: Cigarette Cigarette Packs Per Day: 1.5 Years Smoked: over 20 years ago e-Cigarette/Vaping Use: Never Used Second Hand Smoke Exposure: No service: Yes Current occupational status: employed 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 1. Little interest or pleasure in doing things: not at all 2. Feeling down, depressed, or hopeless: not at all 3. Trouble falling or staying asleep, or sleeping too much: not at all 4. Feeling tired or having little energy: not at all 5. Poor appetite or overeating: not at all 6. Feeling bad about yourself - or that you are a failure or have let yourself or your family down: not at all 7. Trouble concentrating on things, such as reading the newspaper or watching television: not at all 8. Moving or speaking so slowly that other people could have noticed. Or the opposite - being so fidgety or restless that you have been moving around a lot more than usual: not at all 9. Thoughts that you would be better off or of hurting yourself in some way: not at all Total score: 0 Depression Screening Interpretation: Negative Depression Screening Done: Yes 33867 - PHQ-9 Billing: Yes Source: Developed by Drs. Darwin White, Jessenia Paul, Jose J Ruggiero and colleagues, with an educational wayne from [employer]. Thrive Questionnaire Date Thrive assessed: 01/16/25 I am a: Patient What is your living situation today?: I have a steady place to live Within the past 12 months, did the food you bought not last and you didn't have the money to get more?: Never true Within the past 12 months, did you worry whether your food would run out before you got money to buy more?: Never true Do you have trouble paying for medicines?: No Do you have trouble getting transportation to medical appointments?: No Do you have trouble paying your heating and electricity bill?: No Do you have trouble taking care of your child, family member or friend?: No Do you have trouble with day-to-day activities such as bathing, preparing meals, shopping, managing finances, etc.?: No Are you currently unemployed and looking for a job?: No Are you interested in more education?: No Please select the resources that you would like help with: None Currently or been in a relationship where the following occur: No concerns reported THRIVE Score: 0 AUDIT C Alcohol Use Questionnaire (AUDIT-C) 1. How often do you have a drink containing alcohol?: 4 or more times a week 2. How many drinks containing alcohol do you have on a typical day when you are drinking?: 1 or 2 3. How often do you have six or more drinks on one occasion?: Less than monthly Total Score: 5 Score Reviewed/Action Taken: Yes SHARI-7 AMB Questionnaire SHARI-7 Date SHARI - 7 assessed: 01/16/25 Feeling nervous, anxious, or on edge: 0 = Not at all Not being able to stop or control worryin = Not at all Worrying too much about different things: 0 = Not at all Trouble relaxin = Not at all Being so restless that it is hard to sit still: 0 = Not at all Becoming easily annoyed or irritable: 0 = Not at all Feeling afraid as if something awful might happen: 0 = Not at all Total SHARI-7 score (0-4 normal; 5-9 mild; 10-14 moderate; 15-21 severe): 0 Source: Developed by Drs. Darwin White, Jessenia Paul, Jose J Ruggiero and colleagues, with an educational wayne from [employer]. SHARI-7 Assessment Billing SHARI-7 Assessment Tool: SHARI-7 Assessment 22035 Physical exam (Primary Care) Vital Signs: Last Vital Signs Temp 98.0 F 01/16/25 11:44 Pulse 68 01/16/25 11:44 BP 124/84 01/16/25 11:44 Pulse Ox 97 01/16/25 11:44 BMI result Body Mass Index 27.0 Tobacco/Smoking Status: Tobacco use Status Tobacco use date assessed 01/16/25 01/16/25 11:46 Patient Tobacco Use Status Former Tobacco user 01/16/25 11:46 Tobacco use type Cigarette 01/16/25 11:46 e-Cigarette/Vaping Use Never Used 01/16/25 11:46 PHQ-9: PHQ-9 Score PHQ-9: Total score 0 01/16/25 11:46 Depression Screening Interpretation: Negative Thrive Assessment: Date of Thrive Assessment Date Thrive assessed 01/16/25 01/16/25 11:46 Currently or been in a relationship where the following occur: No concerns reported Coding Level of Care Code Est Pt Level 3 (64420) Diagnoses Tubular adenoma D36.9 HTN (hypertension) I10 Dyslipidemia E78.5 Additional Codes SHARI-7 Assessment Billing - SHARI-7 Assessment Tool: SHARI-7 Assessment 74062 ([id number]) PHQ-9 - 94046 - PHQ-9 Billing: Yes ([id number]) Assessment & Plan Assessment & Plan (1) Tubular adenoma: Comment: colonoscopy 07/2021- adenoma- large repeat 3-6 months Will need Lovenox bridging- heme to arrange-has appointment there in February wants to streamline appointments in do colonoscopy after that time All first-degree relatives should begin colon screening age 40 Code(s): D36.9 - Benign neoplasm, unspecified site Category: Medical (2) HTN (hypertension): Code(s): I10 - Essential (primary) hypertension Category: Medical (3) Dyslipidemia: Code(s): E78.5 - Hyperlipidemia, unspecified Category: Medical Plan . Orders: Orders Comprehensive [place]. Panel Fast Today E78.5 - Hyperlipidemia, unspecified, I10 - Essential (primary) hypertension Lipid Panel Today E78.5 - Hyperlipidemia, unspecified, I10 - Essential (primary) hypertension Complete Blood Count Auto Diff Today E78.5 - Hyperlipidemia, unspecified, I10 - Essential (primary) hypertension TSH reflex Free T4 Today E78.5 - Hyperlipidemia, unspecified, I10 - Essential (primary) hypertension UA CC w/rflx Micro + Cult Today E78.5 - Hyperlipidemia, unspecified, I10 - Essential (primary) hypertension Referrals Gastroenterology Referral D36.9 - Benign neoplasm, unspecified site Medications: Refilled rivaroxaban (Xarelto) 20 mg PO DAILY 90 tabs 0RF
--- OUTSIDE RECORDS SUMMARY | 2025-01-16 13:28 | XMS_ITS | Clinical Summary ---
Author Organization [facility] Address [address] [place] [address] Care Team Providers Care Demurrage Worker Name Role Phone Jaskaran Orellana Primary Care Provider Medications Medication Sig Dispensed Refills Start Date End Date Status gemfibrozil (LOPID) 600 MG tablet Take 600 mg by mouth 2 (two) times a day before breakfast and dinner. 0 Active lisinopril (PRINIVIL,ZESTRIL) tablet 10 mg Take 10 mg by mouth daily. 0 Active atorvastatin (LIPITOR) tablet 10 mg Take 10 mg by mouth every evening. 0 Active rivaroxaban (Xarelto) 20 MG TABS tablet Take 1 tablet (20 mg total) by mouth every evening. 90 tablet 3 12/22/2021 Active Active Problems Problem Noted Date Diagnosed Date Thrombotic disorder 03/15/2019 Social History Tobacco Use Types Packs/Day Years Used Date Smoking Tobacco: Never Assessed Sex and Gender Information Value Date Recorded Sex Assigned at Not on file Gender Identity Not on file Sexual Orientation Not on file Last Filed Vital Signs Vital Sign Reading Time Taken Comments Blood Pressure 119/65 03/15/2019 3:37 PM EDT Pulse 54 04/28/2021 2:08 PM EDT Temperature 36.6 ??C (97.9 ??F) 04/28/2021 2:08 PM ED T Respiratory Rate - - Oxygen Saturation 100% 04/28/2021 2:08 PM EDT Inhaled Oxygen Concentration - - Weight 81.6 kg (180 lb) 04/28/2021 2:08 PM EDT Height - - Body Mass Index - - Plan of Treatment Health Maintenance Due Date Last Done Comments Hepatitis B Vaccines (1 of 3 - 3-dose series) 1969 Hepatitis C Screening 1969 COVID-19 Vaccine (#1) 04/22/1970 Depression Screening 1981 Preventative Health Evaluation 1987 DTap / Tdap / Td (1 - Tdap) 1988 Colon Cancer Screening (Colonoscopy) 2014 Shingrix-Zoster Vaccine (1 of 2) 2019 Influenza Vaccine (#1) 2024 Pneumococcal Vaccine Aged Out No long er eligible based on patient's age to complete this topic RSV Ped < 20 months Aged Out No longe r eligible based on patient's age to complete this topic Care Teams Demurrage Worker Relationship Specialty Start Date End Date Jaskaran Orellana [address] [place] [address] PCP - General Family Medicine 03/15/19
== END 2025-01-16 12:56 | disposition home or self-care (01) ==
LOC: HO.HMCC 11:24
PROVIDERS: PCP Nurse Practitioner Family; Visit Provider Nurse Practitioner Family
DX: D36.9 Benign neoplasm, unspecified site (principal); I10 Essential (primary) hypertension; E78.5 Hyperlipidemia, unspecified

== ENCOUNTER → 2025-01-16 11:23 | Outpatient (BNVA) | payer BC, SELFPAY | PROVIDERS: PCP Nurse Practitioner Family; Visit Provider Nurse Practitioner Family | DX: I10 Essential (primary) hypertension (principal); E78.5 Hyperlipidemia, unspecified; Z86.0101 Personal history of adenomatous and serrated colon polyps | CPT/HCPCS: 96127 ==

== ENCOUNTER 2025-04-08 07:18 | Outpatient (AMB) | payer BC, SELFPAY ==
--- OUTSIDE RECORDS SUMMARY | 2025-04-08 07:21 | XMS_ITS | Clinical Summary ---
Author Organization [facility] Address [address] [place] [address] Care Team Providers Care Quality Director Name Role Phone Jaskaran Orellana Primary Care Provider [phone] Medications Medication Sig Dispensed Refills Start Date [...] age to complete this topic Care Teams Quality Director Relationship Specialty Start Date End Date Jaskaran Orellana [address] [place] [address] PCP - General Family Medicine 03/15/19
--- NOTE | 2025-04-08 07:23 | MHC.OFFVIS ---
Vital Signs 04/08/25 07:26 Height 5 ft 10 in Weight 190 lb BMI 27.3 BP 136/72 Blood Pressure Location Lt brachial Position Sitting Pulse 65 Pulse Oximetry (%) 96 Oxygen Delivery Method Room Air Intake Visit Reasons: Diverticulosis large intestine/3 yrs [place] recall Intake Note: Patient new consult for Diverticulosis large intestine/3 yrs [place] recall, last Colonoscopy was 04/16/2022. Patient denies any GI issues for today visit. Automotive Starter Repairer Required: No Accompanied by: Self / Same As Patient Allergies No Known Allergies Allergy (Verified 04/08/25 07:23) Medication List - Last Reconciled 04/08/25 by Heydi Silver MD atorvastatin 10 mg PO DAILY gemfibrozil 600 mg PO BID 90 days lisinopril 30 mg PO DAILY 90 days rivaroxaban (Xarelto) 20 mg PO DAILY HPI HPI Diverticulosis large intestine/3 yrs [place] recall: Details: GI clinic visit for this 54 YM for follow-up of colon polyps to schedule his next colonoscopy. Pt is on Xarelto for DVT and needs to be bridged for the procedure TODAY'S VISIT: Patient denies any GI issues for today visit. Patient denies symptoms of heartburn, dysphagia, nausea, vomiting, change in appetite or weight. Denies recent change in bowel habits, constipation, diarrhea, black stools or rectal bleeding. Patient denies major cardiac or pulmonary problems, loud snoring or sleep apnea Denies problems with anesthesia in the past. Pt is taking Xarelto for recurrent DVT since 2010. Patient denies known family history of colon polyps, colon cancer or other GI malignancies. LABS IN [place] : Reviewed IMAGING STUDIES: NO RECENT GI IMAGING. ENDOSCOPIC STUDIES: 04/2022 COLONOSCOPY SHOWED: Colonoscopy Findings: One medium sized and one small polyps removed Moderate diverticulosis seen in the sigmoid colon Small hemorrhoids on retroflexed exam. Plan: Repeat Colonoscopy interval based on path results - in 3 years if polyps are adenomatous and due to a hx of multiple colon polyps. Above findings were reviewed with the patient and colon polyps and diverticulosis handouts were given in the discharge area Pt was advised to resume Lovenox Injections tonight, tomorrow (am and pm)and 04/18/22 am. He is to resume Xarelto evening of 04/17/22 BIOPSIES SHOWED: A. Colon, hepatic flexure, polypectomy: Colonic mucosa with prominent lymphoid aggregate; no dysplasia seen. B. Colon, sigmoid, polypectomy: Colonic mucosa with mild surface hyperplastic changes PAST GI HISTORY BY REVIEW OF MEDICAL RECORDS: A 51 y/o male returns to discuss colonoscopy results- pt had discontinued Xarelto for procedures that was performed on 08/04/21 -day after procedure went to ED thinking he had a blood clot, due to pain in his left lower leg. Patient states however DVT was not identified. Followed up on 08/08 at the ED due to increased pain diagnosed with DVT- Currently awaiting appointment with new brooch maker novelty here at [facility]. He has no GI complaints. FORMERLY [facility] Medical History COVID-19 vaccine series completed Dyslipidemia HTN (hypertension) History of deep vein thrombosis terminal carman current use of anticoagulant therapy Surgical History History of surgery Hx of colonoscopy Family History Mother Breast cancer Hypertension Father Lung cancer Hypertension Substance use disorder Maternal Grandfather Skin cancer Paternal Grandfather Colon cancer Substance use disorder Sister Skin cancer Maternal Grandfather Substance use disorder Social History Household Members: Spouse Housing: House Are you a primary overnight caregiver to a significant other at home: No Do you presently have visiting nurse or other home services: No Alcohol intake: current Alcohol intake frequency: 3 or more drinks per day Alcohol type: beer Patient Tobacco Use Status: Former Tobacco user Tobacco use type: Cigarette Cigarette Packs Per Day: 1.5 Years Smoked: over 20 years ago e-Cigarette/Vaping Use: Never Used Second Hand Smoke Exposure: No service: Yes Current occupational status: employed 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 Current occupational exposures/hazards: No Cognitive needs: No Hearing needs: No Vision needs: No Review of Systems Const Denies fever(s), Denies headache(s) and Denies weight loss Eyes Denies eye discharge and Denies irritation ENT Reports Normal hearing present, Denies dysphagia, Denies dizziness and Denies headache(s) Card Denies chest pain, Denies leg edema and Denies dyspnea on exertion Resp Denies cough, Denies dyspnea on exertion and Denies wheezing GI Denies abdominal pain, Denies change in bowel habits, Denies dysphagia and Denies heartburn Denies dysuria Musc Denies back pain and Denies arthralgias Skin/Breast Denies pruritus, Denies rash and Denies jaundice Neuro Reports Normal hearing present, Denies Abnormal speech present, Denies dizziness, Denies headache(s) and Denies seizure-like activity Psych Denies anxiety, Denies depression and Denies panic attacks Endo Denies cold intolerance, Denies flushing and Denies heat intolerance Gary/Lymph Denies easy bleeding and Denies easy bruising Aller/Immun Denies wheezing Physical Exam Vital Signs: Last Vital Signs Pulse 65 04/08/25 07:26 BP 136/72 04/08/25 07:26 Pulse Ox 96 04/08/25 07:26 Oxygen Delivery Method Room Air 04/08/25 07:26 BMI result Body Mass Index 27.3 Const General: healthy appearing and no acute distress Nutritional Appearance: overweight Orientation/consciousness: patient oriented x3 Limitations: no limitations HEENT Head: Yes normal to inspection Ears: hearing grossly normal bilaterally Eyes Sclerae: sclerae normal Pupils: Equal, round and reactive pupils present Neck Neck: Yes normal visual inspection Chest Chest palpation & inspection: normal inspection of the chest Resp Effort & Inspection: normal respiratory effort Auscultation: clear to auscultation bilaterally Cardio Palpation: normal PMI Rate: regular rate Rhythm: regular rhythm Heart sounds: S1 normal heart sound present, S2 normal heart sound present and no murmurs GI Palpation (GI): Soft to palpation, nontender and No hepatosplenomegaly present Auscultation: normal bowel sounds Rectal Exam - Male: Yes deferred Skin General skin exam: no rashes or lesions noted Neuro General: patient oriented x3, gait normal and moves all extremities Cranial nerves: Yes Equal, round and reactive pupils present and Yes Normal hearing present Speech: No Abnormal speech present Psych Appearance: grossly normal Mental Status: mental status grossly normal Assessment & Plan Assessment & Plan (1) Tubular adenoma: Comment: colonoscopy 07/2021- adenoma- large repeat 3-6 months Will need Lovenox bridging- heme to arrange-has appointment there in February wants to streamline appointments in do colonoscopy after that time All first-degree relatives should begin colon screening age 40 Code(s): D36.9 - Benign neoplasm, unspecified site Category: Medical (2) terminal carman current use of anticoagulant therapy: Comment: Xarelto history DVT- DVT postprocedure 08/08/21- Code(s): Z79.01 - detention (current) use of anticoagulants Category: Medical Plan 54 YM for follow-up of colon polyps to schedule his next colonoscopy. Pt is on Xarelto for DVT and needs to be bridged for the procedure - pt reports he is sccheduled to see Dr Winston end of April. Colonoscopy procedure, prep instructions and potential complications were reviewed with the patient. Message sent to GI Surgical Schedulers to schedule an appt for the colonoscopy. FU in 4 months Medications: New polyethylene glycol 3350 (Miralax) Mix Miralax with 64 oz(8 cups) of Crystal light. Take 2 tablets of Dulcolax qt 12 pm. Wait to have your 1st bowel movement, then begin drinking Miralax. Drink a glass of Miralax every 10-15 minutes until you are finished. You will drink at least another 4 cups of clear liquid of your choice over the next 2 hours. Please drink as many clear liquids as possible You may have clear liquids up to four hours before your procedure 17 grams PO DAILY 1 day 238 grams 0RF bisacodyl (Dulcolax (bisacodyl)) Take 4 tablets at 12 pm the day before colonoscopy appointment 20 mg (4 x 5 mg) PO ONCE 1 day 4 tabs 0RF colon prep Coding Level of Care Code Est Pt Level 4 (74827) Diagnoses Tubular adenoma D36.9 terminal carman current use of anticoagulant therapy Z79.01 Time Spent (min) 21
[2025-04-08 07:26] VITALS: BP 136/72; PULSE 65; O2SAT 96; BMI 27.3
== END 2025-04-08 08:06 | disposition home or self-care (01) ==
LOC: HO.HGI 07:19
PROVIDERS: PCP Nurse Practitioner Family; Visit Provider Internal Medicine Gastroenterology
DX: D36.9 Benign neoplasm, unspecified site (principal); Z79.01 Long term (current) use of anticoagulants
CPT/HCPCS: 99214

== ENCOUNTER → 2025-04-08 07:18 | Outpatient (BNVA) | payer BC, SELFPAY | PROVIDERS: PCP Nurse Practitioner Family; Visit Provider Internal Medicine Gastroenterology ==

== ENCOUNTER 2025-05-15 16:37 | Outpatient (REF) | payer BC, SELFPAY ==
--- OUTSIDE RECORDS SUMMARY | 2025-05-15 16:39 | XMS_ITS | Clinical Summary ---
Author Organization [facility] Address [address] [place] [address] Care Team Providers Care District Fire Management Officer Name Role Phone Jaskaran Orellana Primary Care Provider [phone] Medications Medication Sig Dispensed Refills Start Date [...] 54 04/28/2021 2:08 PM EDT Temperature 36.6 C (97.9 F) 04/28/2021 2:08 PM EDT Respiratory Rate - - Oxygen Saturation 100% [...] (1 of 2) 2019 Influenza Vaccine (#1) 2025 Pneumococcal Vaccine Aged Out No long er eligible based on patient's age to complete this topic RSV Ped < 20 months Aged Out No longe r eligible based on patient's age to complete this topic Care Teams District Fire Management Officer Relationship Specialty Start Date End Date Jaskaran Orellana [address] [place] [address] PCP - General Family Medicine 03/15/19
== END 2025-05-15 16:38 | disposition home or self-care (01) ==
LOC: HO.LAB 16:37
PROVIDERS: PCP Nurse Practitioner Family; Visit Provider Internal Medicine
DX: Z86.718 Personal history of other venous thrombosis and embolism (principal)
CPT/HCPCS: 36415; 85240

== ENCOUNTER 2025-05-22 09:29 | Outpatient (REF) | payer BC, SELFPAY ==
--- OUTSIDE RECORDS SUMMARY | 2025-05-22 09:54 | XMS_ITS | Clinical Summary ---
Author Organization [facility] Address [address] [place] [address] Care Team Providers Care Research Director Name Role Phone Jaskaran Orellana Primary Care Provider [phone] Medications Medication Sig Dispensed Refills Start Date [...] age to complete this topic Care Teams Research Director Relationship Specialty Start Date End Date Jaskaran Orellana [address] [place] [address] PCP - General Family Medicine 03/15/19
== END 2025-05-22 09:30 | disposition home or self-care (01) ==
LOC: HO.LAB 09:29
PROVIDERS: Visit Provider Internal Medicine
DX: Z86.718 Personal history of other venous thrombosis and embolism (principal)
CPT/HCPCS: 36415; 85240

== ENCOUNTER 2025-10-11 06:01 | Outpatient (REF) | payer BC, SELFPAY ==
--- OUTSIDE RECORDS SUMMARY | 2025-10-11 06:04 | XMS_ITS | Clinical Summary ---
Author Organization [facility] Prior to 04/06/25 Address [address] [place] [address] Care Team Providers Care Welfare Administrator Name Role Phone Jaskaran Orellana Primary Care Provider [phone] Medications Medication Sig Dispensed Refills Start Date [...] age to complete this topic Care Teams Welfare Administrator Relationship Specialty Start Date End Date Jaskaran Orellana [address] [place] [address] PCP - General Family Medicine 03/15/19
[2025-10-11 10:13] LABS: MANUAL DIFF FLAG NO
[2025-10-11 10:22] LABS: Hematocrit 42.6 % (42.0-52.0); Hemoglobin 14.4 g/dl (14.0-18.0); Imm Gran Abs Auto 0.01 X10*3/uL (0.00-0.03); Imm Gran Pct Auto 0.1 % (0.0-0.4); Lymphocytes Absolute Auto 2.3 X10*3/uL (1.2-4.9); Mean Corpuscular HGB Conc 33.8 g/dl (31.0-36.0); Mean Corpuscular Hemoglobin 31.0 pg (27.0-33.0); Mean Corpuscular Volume 91.8 fL (80.0-98.0); NRBC Abs Auto 0.000 X10*3/uL (0.0-0.012); NRBC Pct Auto 0.0 /100WBC (0.0-0.2); Platelet Count 401 X10*3/uL (160-400); Red Blood Count 4.64 X10*6/uL (4.60-5.80); White Blood Count 7.3 X10*3/uL (4.8-10.8)
[2025-10-11 10:26] LABS: Appearance Urine Clear; Glucose Urine UA Negative (Negative); PH 5.0 (5.0-9.0); Specific Gravity - Urine 1.025 (1.005-1.025)
[2025-10-11 10:54] LABS: Alanine Aminotransferase 22 U/L (0-40); Albumin Level 5.0 g/dL (3.5-5.0); Alkaline Phosphatase 64 U/L (39-117); Anion Gap 11 (12-20); Aspartate Amino Transferase 25 U/L (5-37); Blood Urea Nitrogen 18 mg/dL (9-16); Calcium 9.4 mg/dL (8.4-10.2); Carbon Dioxide 27 mmol/L (22-29); Chloride 108 mmol/L (96-108); Cholesterol 178 mg/dL (<200); Estimated Glomerular Filt Rate > 60; HDL Cholesterol 44 mg/dL (>40); Potassium 3.8 mmol/L (3.3-5.1); Sodium 142 mmol/L (135-145); Total Protein 7.4 g/dL (6.5-8.0); Triglycerides 133 mg/dL (<150)
== END 2025-10-11 06:02 | disposition home or self-care (01) ==
LOC: HO.HMGCLDS 06:01
PROVIDERS: PCP Nurse Practitioner Family; Visit Provider Nurse Practitioner Family
DX: I10 Essential (primary) hypertension (principal); E78.5 Hyperlipidemia, unspecified
CPT/HCPCS: 36415; 80053; 80061; 81003; 84443; 85025

== ENCOUNTER 2025-10-14 12:49 | Outpatient (AMB) | payer BC, SELFPAY ==
--- NOTE | 2025-10-14 12:58 | A.OFFPC_ITS ---
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: No Accompanied by: Self / Same As Patient Allergies No Known Allergies Allergy (Verified 10/14/25 13:30) Medication List - Last Reconciled 10/14/25 by SHEN Mcknight- atorvastatin 10 mg PO DAILY gemfibrozil 600 mg PO BID 90 days lisinopril 30 mg PO DAILY 90 days rivaroxaban (Xarelto) 20 mg PO DAILY Tobacco use date assessed: 10/14/25 Dental Screening Dental Screen Date: 10/14/25 Did you have a dental visit in the last 12 months?: Yes Did you have a dental problem in the last 6 months where you did not have access to dental care?: No Was dental information given to patient?: Patient has dentist HPI PE HPI Details History of Present Illness The patient is a 54 year old male presenting for a physical examination. His recent lab results showed a fasting blood sugar of 102 mg/dL. He is scheduled for a repeat colon screening in the near future. Health Maintenance - The patient is scheduled for a repeat colon screening. - An order for a Prostate-Specific Antig en (PSA) test was placed. - The patient was educated on the import ance of diet due to his fasting blood sugar of 102 mg/dL. Social History - Exercise: The patient expressed a berta re to return to the gym. - Diet: The patient was educated on diet and understands its importance. Review of Systems - Cardiovascular: Denies chest pain. - Respiratory: Denies shortness of breat h. - Gastrointestinal: Denies abdominal opal n, hematochezia, constipation, and diarrhea. -denies any si or hi Physical Exam General: Cooperative, healthy appearing, comfortable, no acute distress and well developed Orientation: Patient oriented x3 Limitations: No limitations Head: Normal to inspection Ears: Hearing grossly normal bilaterally Nose: Normal external nose present Face and sinus: Normal facial exam Eyes: Appearance normal, both eyes and all related structures Neck: Normal visual inspection and Yes full ROM Respiratory: Normal respiratory effort and able to speak in complete sentences. Clear to auscultation bilaterally Cardiovascular: Regular rate and rhythm. Normal S1 and S2 GI: Normal to inspection. Soft to palpation and nontender : testicles without masses/lesions and no hernias appreciated Skin: No rashes or lesions noted Neuro: Patient oriented x3 Extremities: Normal to inspection Results - Labs: Fasting blood sugar was 102 mg/d L. Plan 1. Annual Physical Examination The patient presented for a physical exam which was found to be benign. Cardiac exam revealed S1 and S2 sounds, and lungs were clear. 2. Impaired Fasting Glucose The patient's fasting blood sugar was 102 mg/dL. He was educated on the importance of diet, which he acknowledged, and he expressed a desire to resume gym activities. 3. Screening For Malignant Neoplasm Of Pop cosme The patient is scheduled for a repeat colon screening in the near future. 4. Screening For Malignant Neoplasm Of Jeanette vasques An order for a Prostate-Specific Antigen (PSA) test was placed. Discussion Notes I discussed the patient's fasting blood sugar result of 102 mg/dL and educated him on the importance of diet, which he understood. He has an upcoming appointment for a repeat colon screening. I also placed an order for a PSA test. Patient Instructions - Follow up with your scheduled colon sc reening. - Please get the bloodwork done for the PSA test that was ordered. - Continue to focus on your diet. - We encourage you to get back into a ro utine at the gym as you planned. 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 Surgical History History of surgery Hx of colonoscopy Family History Mother Breast cancer Hypertension Father Lung cancer Hypertension Substance use disorder Maternal Grandfather Skin cancer Paternal Grandfather Colon cancer Substance use disorder Sister Skin cancer Maternal Grandfather Substance use disorder Social History Household Members: Spouse Housing: House Are you a primary career development engineer to a significant other at home: No Do you presently have visiting nurse or other home services: No Alcohol intake: current Alcohol intake frequency: 3 or more drinks per day Alcohol type: beer Patient Tobacco Use Status: Former Tobacco user Tobacco use type: Cigarette Cigarette Packs Per Day: 1.5 Years Smoked: over 20 years ago e-Cigarette/Vaping Use: Never Used Second Hand Smoke Exposure: No service: Yes Current occupational status: employed 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 1. Little interest or pleasure in doing things: not at all 2. Feeling down, depressed, or hopeless: not at all 3. Trouble falling or staying asleep, or sleeping too much: not at all 4. Feeling tired or having little energy: not at all 5. Poor appetite or overeating: not at all 6. Feeling bad about yourself - or that you are a failure or have let yourself or your family down: not at all 7. Trouble concentrating on things, such as reading the newspaper or watching television: not at all 8. Moving or speaking so slowly that other people could have noticed. Or the opposite - being so fidgety or restless that you have been moving around a lot more than usual: not at all 9. Thoughts that you would be better off or of hurting yourself in some way: not at all Total score: 0 Depression Screening Interpretation: Negative Depression Screening Done: Yes 61059 - PHQ-9 Billing: Yes Source: Developed by Drs. Darwin White, Jessenia Paul, Jose J Ruggiero and colleagues, with an educational wayne from [employer]. Thrive Questionnaire Date Thrive assessed: 01/15/25 I am a: Patient What is your living situation today?: I have a steady place to live Within the past 12 months, did the food you bought not last and you didn't have the money to get more?: Never true Within the past 12 months, did you worry whether your food would run out before you got money to buy more?: Never true Do you have trouble paying for medicines?: No Do you have trouble getting transportation to medical appointments?: No Do you have trouble paying your heating and electricity bill?: No Do you have trouble taking care of your child, family member or friend?: No Do you have trouble with day-to-day activities such as bathing, preparing meals, shopping, managing finances, etc.?: No Are you currently unemployed and looking for a job?: No Are you interested in more education?: No Please select the resources that you would like help with: None Currently or been in a relationship where the following occur: No concerns reported THRIVE Score: 0 SHARI-7 AMB Questionnaire SHARI-7 Date SHARI - 7 assessed: 01/16/25 Source: Developed by Drs. Darwin White, Jessenia Paul, Jose J Ruggiero and colleagues, with an educational wayne from [employer]. Physical exam (Primary Care) Vital Signs: Last Vital Signs Pulse 62 10/14/25 12:59 Resp 16 10/14/25 12:59 BP 128/70 10/14/25 12:59 Pulse Ox 98 10/14/25 12:59 Oxygen Delivery Method Room Air 10/14/25 12:59 BMI result Body Mass Index 28.0 Tobacco/Smoking Status: Tobacco use Status Tobacco use date assessed 10/14/25 10/14/25 13:03 Patient Tobacco Use Status Former Tobacco user 10/14/25 13:03 Tobacco use type Cigarette 10/14/25 13:03 e-Cigarette/Vaping Use Never Used 10/14/25 13:03 PHQ-9: PHQ-9 Score PHQ-9: Total score 0 10/14/25 13:03 Depression Screening Interpretation: Negative Thrive Assessment: Date of Thrive Assessment Date Thrive assessed 01/15/25 10/14/25 13:03 Currently or been in a relationship where the following occur: No concerns reported Coding Level of Care Code Est Pt Prev Care 40-64y(24210) Diagnoses Screening PSA (prostate specific antigen) Z12.5 Physical exam Z00.00 Additional Codes PHQ-9 - 03071 - PHQ-9 Billing: Yes ([id number]) Assessment & Plan Assessment & Plan (1) Screening PSA (prostate specific antigen): Code(s): Z12.5 - Encounter for screening for malignant neoplasm of prostate Category: Medical (2) Physical exam: Code(s): Z00.00 - Encounter for general adult medical examination without abnormal findings Category: Medical Plan . Orders: Orders Prostate Specific Antigen Scr Today Z12.5 - Encounter for screening for malignant neoplasm of prostate
[2025-10-14 12:59] VITALS: BP 128/70; PULSE 62; RESP 16; O2SAT 98; BMI 28.0
== END 2025-10-14 13:57 | disposition home or self-care (01) ==
LOC: HO.HMCC 12:50
PROVIDERS: PCP Nurse Practitioner Family; Visit Provider Nurse Practitioner Family
DX: Z00.00 Encounter for general adult medical examination without abnormal findings (principal); Z12.5 Encounter for screening for malignant neoplasm of prostate

== ENCOUNTER → 2025-10-14 12:49 | Outpatient (BNVA) | payer BC, SELFPAY | PROVIDERS: PCP Nurse Practitioner Family; Visit Provider Nurse Practitioner Family | DX: Z00.00 Encounter for general adult medical examination without abnormal findings (principal); R73.01 Impaired fasting glucose | CPT/HCPCS: 96127 ==